=== PATIENT | female | born 1945 ===

== ENCOUNTER → 2020-08-25 11:15 | Outpatient (BNVA) | payer OTHER, SELFPAY | PROVIDERS: PCP Internal Medicine; Visit Provider Internal Medicine Pulmonary Disease | DX: G47.33 Obstructive sleep apnea (adult) (pediatric) (principal); E66.2 Morbid (severe) obesity with alveolar hypoventilation; R06.00 Dyspnea, unspecified; Z99.81 Dependence on supplemental oxygen | CPT/HCPCS: 99202 ==

== ENCOUNTER → 2020-10-28 09:55 | Outpatient (BNVA) | payer OTHER, SELFPAY | PROVIDERS: PCP Internal Medicine; Visit Provider Internal Medicine Pulmonary Disease | DX: G47.33 Obstructive sleep apnea (adult) (pediatric) (principal); E66.2 Morbid (severe) obesity with alveolar hypoventilation; Z99.81 Dependence on supplemental oxygen | CPT/HCPCS: 99212 ==

== ENCOUNTER → 2021-03-14 11:32 | Outpatient (BNVA) | payer OTHER, SELFPAY | PROVIDERS: PCP Internal Medicine; Visit Provider Internal Medicine Pulmonary Disease | DX: G47.33 Obstructive sleep apnea (adult) (pediatric) (principal); E66.2 Morbid (severe) obesity with alveolar hypoventilation; Z99.81 Dependence on supplemental oxygen; Z68.43 Body mass index [BMI] 50.0-59.9, adult | CPT/HCPCS: 99212 ==

== ENCOUNTER → 2021-07-05 11:54 | Outpatient (BNVA) | payer OTHER, SELFPAY | PROVIDERS: PCP Internal Medicine; Visit Provider Internal Medicine Pulmonary Disease | DX: G47.33 Obstructive sleep apnea (adult) (pediatric) (principal); E66.2 Morbid (severe) obesity with alveolar hypoventilation; Z99.81 Dependence on supplemental oxygen | CPT/HCPCS: 99212 ==

== ENCOUNTER → 2021-11-02 11:20 | Outpatient (BNVA) | payer OTHER, SELFPAY | PROVIDERS: PCP Internal Medicine; Visit Provider Internal Medicine Pulmonary Disease | DX: G47.33 Obstructive sleep apnea (adult) (pediatric) (principal); Z99.81 Dependence on supplemental oxygen | CPT/HCPCS: 99212 ==

== ENCOUNTER → 2022-02-09 13:35 | Outpatient (BNVA) | payer OTHER, SELFPAY | PROVIDERS: PCP Internal Medicine; Visit Provider Internal Medicine Pulmonary Disease | DX: G47.33 Obstructive sleep apnea (adult) (pediatric) (principal); E66.2 Morbid (severe) obesity with alveolar hypoventilation; Z99.81 Dependence on supplemental oxygen; Z68.43 Body mass index [BMI] 50.0-59.9, adult | CPT/HCPCS: Q3014 ==

== ENCOUNTER → 2022-03-09 14:27 | Outpatient (BNVA) | payer OTHER, SELFPAY | PROVIDERS: PCP Internal Medicine; Visit Provider Internal Medicine Pulmonary Disease | DX: G47.33 Obstructive sleep apnea (adult) (pediatric) (principal); E66.2 Morbid (severe) obesity with alveolar hypoventilation; Z99.81 Dependence on supplemental oxygen | CPT/HCPCS: 99212 ==

== ENCOUNTER 2022-05-23 15:34 | Outpatient (REF) | payer OTHER, SELFPAY ==
[2022-05-25 07:04] LABS: Lyme Blot 1.27 index
[2022-05-28 14:17] LABS: Vitamin B12 407 pg/mL (200-900)
[2022-05-28 18:59] LABS: Treponema pallidum Ab FTA ABS Nonreactive (Nonreactive)
[2022-05-31 11:18] LABS: Lyme Abs Screen POSITIVE
== END 2022-05-23 15:35 | disposition home or self-care (01) ==
LOC: HO.LAB 15:34
PROVIDERS: PCP Internal Medicine; Visit Provider Psychiatry & Neurology Neurology
DX: G93.40 Encephalopathy, unspecified (principal)
CPT/HCPCS: 36415; 82607; 86617; 86618; 86780

== ENCOUNTER 2022-10-09 12:41 | Outpatient (AMB) | payer OTHER, SELFPAY ==
[2022-10-09 13:01] VITALS: BP 130/82; PULSE 100; O2SAT 90
--- NOTE | 2022-10-09 13:01 | MHC.OFFVIS ---
Intake Vital Signs 10/09/22 13:01 Height 5 ft BP 130/82 Pulse 100 Pulse Oximetry (%) 90 L Intake Visit Reasons: copd Allergies No Known Allergies Allergy (Verified 10/09/22 13:01) HPI copd HPI Details 77-year-old lady, nonsmoker, with underlying super morbid obesity, followed for MAXIME with obesity hypoventilation syndrome, supplemental oxygen 2-3 L dependent.? Patient continues to use supplemental oxygen including at night when she is not fully compliant with her BiPAP.? She continues to have spotty compliance with her noninvasive positive pressure ventilation secondary to significant leak of her BiPAP mask. Patient has been at advised to try over the nose mask, as previously she had the best results with it. [facility] Social History Patient Tobacco Use Status: Never used Tobacco Review of Systems Const Reports daytime sleepiness, Denies excessive sweating, Reports fatigue, Denies fever(s), Denies lethargy, Denies malaise, Denies night sweats, Reports snoring and Denies weight loss Eyes Denies blurry vision and Denies itchy eyes ENT Denies nasal congestion, Denies post nasal drip, Denies sinus pain, Denies sinus pressure and Denies other ( Thrush) Card Denies chest pain, Denies pedal edema, Denies dyspnea, Denies orthopnea and Denies paroxysmal nocturnal dyspnea Resp Denies cough, Denies hemoptysis, Denies excessive phlegm production, Denies dyspnea, Reports snoring and Denies wheezing GI Denies abdominal pain and Denies heartburn Musc Denies myalgias, Denies arthralgias and Denies joint swelling Skin/Breast Denies rash Neuro Denies memory loss and Denies seizure-like activity Psych Denies abnormal sleep pattern, Denies anxiety and Denies memory loss Endo Denies excessive sweating, Reports fatigue and Denies heat intolerance Rene/Lymph Denies easy bruising Aller/Immun Denies itchy eyes, Denies seasonal rhinorrhea and Denies wheezing Physical Exam Vital Signs: Last Vital Signs Pulse 100 10/09/22 13:01 BP 130/82 10/09/22 13:01 Pulse Ox 90 L 10/09/22 13:01 Const General: no acute distress and alert Nutritional Appearance: obese Orientation/consciousness: Other orientation findings ( oriented) HEENT Head: Yes atraumatic Eyes General: appearance normal, both eyes and all related structures Sclerae: sclerae normal EOM: EOMs intact bilaterally Neck Neck: Yes supple Lymphatic: no lymphadenopathy noted Resp Effort & Inspection: normal respiratory effort and no use of accessory muscles Auscultation: clear to auscultation bilaterally Cardio Rate: regular rate Rhythm: regular rhythm Heart sounds: no gallops, no murmurs and no rubs Skin General skin exam: other ( warm) Extrem General: No clubbing, No cyanosis and Yes edema (1+ bilateral) Assessment & Plan Assessment & Plan (1) MAXIME (obstructive sleep apnea): Code(s): G47.33 - Obstructive sleep apnea (adult) (pediatric) Plan: Patient still with suboptimal compliance with her nocturnal BiPAP secondary to significantly cough her current mask. Patient has been advised to try using nasal mask as her compliance with the best with at type of mask. As long as patient is utilizing her BiPAP at night her chronic CO2 retention is controlled. (2) Obesity hypoventilation syndrome: Code(s): E66.2 - Morbid (severe) obesity with alveolar hypoventilation (3) Supplemental oxygen dependent: Code(s): Z99.81 - Dependence on supplemental oxygen Plan: Continues flow mental oxygen to maintain O2 saturation of 88-93%. Coding Level of Care Code Est Pt Level 4 (60192) Diagnoses MAXIME (obstructive sleep apnea) G47.33 Obesity hypoventilation syndrome E66.2 Supplemental oxygen dependent Z99.81
== END 2022-10-09 13:32 | disposition home or self-care (01) ==
PROVIDERS: PCP Internal Medicine; Visit Provider Internal Medicine Pulmonary Disease
DX: G47.33 Obstructive sleep apnea (adult) (pediatric) (principal); Z99.81 Dependence on supplemental oxygen
CPT/HCPCS: 99214

== ENCOUNTER → 2022-10-09 12:41 | Outpatient (BNVA) | payer OTHER, SELFPAY | PROVIDERS: PCP Internal Medicine; Visit Provider Internal Medicine Pulmonary Disease | DX: G47.33 Obstructive sleep apnea (adult) (pediatric) (principal); E66.2 Morbid (severe) obesity with alveolar hypoventilation; Z99.81 Dependence on supplemental oxygen | CPT/HCPCS: 99212 ==

== ENCOUNTER 2022-12-26 11:13 | Outpatient (AMB) | payer OTHER, SELFPAY ==
--- NOTE | 2022-12-26 11:20 | A.OFFVIS_ITS ---
Intake Vital Signs 12/26/22 11:21 Height 5 ft BMI Reason not done Patient refused/unable BP 108/62 Blood Pressure Location Lt radial Position Sitting Pulse 97 Pulse Source Pulse Oximeter Pulse Oximetry (%) 92 Oxygen Delivery Method Nasal Cannula Oxygen Flow Rate 2 Intake Visit Reasons: COPD Intake Note: pt is here for a follow up and states she is feeling okay, no concerns Bioinformatics Scientist Required: No Allergies No Known Allergies Allergy (Verified 12/26/22 11:25) HPI COPD HPI Details 77-year-old lady, nonsmoker, with underl erendira super morbid obesity, followed for MAXIME with obesity hypoventilation syndrome, supplemental oxygen 2-3 L dependent.? Patient continues to use supplemental oxygen including at night when she is not fully compliant with her BiPAP.? She continues to have spotty compliance with her noninvasive positive pressure ventilation secondary to significant leak of her BiPAP mask. Patient at this time would like to go back and try a fullface mask. [facility] Social History Patient Tobacco Use Status: Never used Tobacco Review of Systems Const Denies daytime sleepiness, Denies excessive sweating, Reports fatigue, Denies fever(s), Denies lethargy, Reports malaise, Denies night sweats, Reports snoring and Denies weight loss Eyes Denies blurry vision and Denies itchy eyes ENT Denies nasal congestion, Denies post nasal drip, Denies sinus pain, Denies sinus pressure and Denies other ( Thrush) Card Denies chest pain, Denies pedal edema, Denies dyspnea, Denies orthopnea and Denies paroxysmal nocturnal dyspnea Resp Denies cough, Denies hemoptysis, Denies excessive phlegm production, Denies dyspnea, Reports snoring and Denies wheezing GI Denies abdominal pain and Denies heartburn Musc Denies myalgias, Denies arthralgias and Denies joint swelling Skin/Breast Denies rash Neuro Denies memory loss and Denies seizure-like activity Psych Denies abnormal sleep pattern, Denies anxiety and Denies memory loss Endo Denies excessive sweating, Reports fatigue and Denies heat intolerance Rene/Lymph Denies easy bruising Aller/Immun Denies itchy eyes, Denies seasonal rhinorrhea and Denies wheezing Physical Exam Vital Signs: Last Vital Signs Pulse 97 12/26/22 11:21 BP 108/62 12/26/22 11:21 Pulse Ox 92 12/26/22 11:21 Oxygen Delivery Method Nasal Cannula 12/26/22 11:21 Oxygen Flow Rate 2 12/26/22 11:21 Const General: no acute distress and alert Nutritional Appearance: obese Orientation/consciousness: Other orientation findings ( oriented) HEENT Head: Yes atraumatic Eyes General: appearance normal, both eyes and all related structures Sclerae: sclerae normal EOM: EOMs intact bilaterally Neck Neck: Yes supple Lymphatic: no lymphadenopathy noted Resp Effort & Inspection: normal respiratory effort and no use of accessory muscles Auscultation: clear to auscultation bilaterally Cardio Rate: regular rate Rhythm: regular rhythm Heart sounds: no gallops, no murmurs and no rubs Skin General skin exam: other ( warm) Extrem General: No clubbing, No cyanosis and Yes edema (2+ bilateral) Assessment & Plan Assessment & Plan (1) MAXIME (obstructive sleep apnea): Code(s): G47.33 - Obstructive sleep apnea (adult) (pediatric) Plan: Suboptimally controlled as patient is suboptimally compliant with her BiPAP. Patient has been encouraged to be more compliant with her BiPAP. (2) Obesity hypoventilation syndrome: Code(s): E66.2 - Morbid (severe) obesity with alveolar hypoventilation (3) Dyspnea: Code(s): R06.00 - Dyspnea, unspecified (4) Supplemental oxygen dependent: Code(s): Z99.81 - Dependence on supplemental oxygen Plan: Continue supplemental oxygen to maintain O2 saturation of 88-92%. Coding Level of Care Code Est Pt Level 4 (73605) Diagnoses MAXIME (obstructive sleep apnea) G47.33 Obesity hypoventilation syndrome E66.2 Dyspnea R06.00 Supplemental oxygen dependent Z99.81
[2022-12-26 11:21] VITALS: BP 108/62; PULSE 97; O2SAT 92
== END 2022-12-26 11:47 | disposition home or self-care (01) ==
PROVIDERS: PCP Internal Medicine; Visit Provider Internal Medicine Pulmonary Disease
DX: G47.33 Obstructive sleep apnea (adult) (pediatric) (principal); Z99.81 Dependence on supplemental oxygen; R06.00 Dyspnea, unspecified
CPT/HCPCS: 99214

== ENCOUNTER → 2022-12-26 11:13 | Outpatient (BNVA) | payer OTHER, SELFPAY | PROVIDERS: PCP Internal Medicine; Visit Provider Internal Medicine Pulmonary Disease | DX: G47.33 Obstructive sleep apnea (adult) (pediatric) (principal); R06.00 Dyspnea, unspecified; E66.2 Morbid (severe) obesity with alveolar hypoventilation; Z99.81 Dependence on supplemental oxygen | CPT/HCPCS: 99212 ==

== ENCOUNTER 2023-11-29 13:10 | Outpatient (AMB) | payer OTHER, SELFPAY ==
--- NOTE | 2023-11-29 13:13 | A.OFFVIS_ITS ---
Vital Signs 11/29/23 13:16 Pulse 93 Pulse Source Pulse Oximeter Pulse Oximetry (%) 95 Oxygen Delivery Method Nasal Cannula Oxygen Flow Rate 2 Comment pt unable to stand to obtain to weight Intake Visit Reasons: COPD Allergies No Known Allergies Allergy (Verified 11/29/23 13:21) Medication List - Last Reconciled 11/29/23 by Vanessa Dodson LPN albuterol sulfate 90 mcg/actuation 2 puffs inhalation Q4H PRN blood sugar diagnostic As directed cholecalciferol (vitamin D3) 25 mcg PO DAILY dorzolamide-timolol 22.3-6.8 mg/mL mL ophthalmic (eye) dulaglutide 1.5 mg subcut QWEEK gabapentin 100 mg PO DAILY insulin glargine units subcut insulin regular human (Novolin R FlexPen) 20 units subcut TID ipratropium-albuterol 0.5 mg-3 mg(2.5 mg base)/3 mL 3 mL inhalation Q4-6H PRN 30 days ketoconazole 2% appl topical BEDTIME lancets As directed metformin ER 1,000 mg PO BID metoprolol succinate ER 50 mg PO DAILY mirabegron ER (Myrbetriq) 50 mg PO DAILY nystatin topical pen needle, diabetic As directed sennosides 17.2 mg PO DAILY sertraline 100 mg PO DAILY simvastatin 20 mg PO BEDTIME sulfamethoxazole-trimethoprim 800-160 mg 1 tab PO BID warfarin 0 mg PO HPI HPI COPD: Details: 78-year-old lady, nonsmoker, with underlying super morbid obesity, followed for MAXIME with obesity hypoventilation syndrome, supplemental oxygen 2-3 L dependent.? Patient continues to use supplemental oxygen including at night when she is not fully compliant with her BiPAP.? She continues to have spotty compliance with her noninvasive positive pressure ventilation secondary to significant leak of her BiPAP mask. No significant changes since prior visit. [facility] Social History Patient Tobacco Use Status: Never used Tobacco Review of Systems Const Reports daytime sleepiness, Denies excessive sweating, Reports fatigue, Denies fever(s), Reports lethargy, Denies malaise, Denies night sweats, Reports snoring and Denies weight loss Eyes Denies blurry vision and Denies itchy eyes ENT Denies nasal congestion, Denies post nasal drip, Denies sinus pain, Denies sinus pressure and Denies other ( Thrush) Card Denies chest pain, Reports pedal edema, Denies dyspnea, Reports dyspnea on exertion, Reports orthopnea and Denies paroxysmal nocturnal dyspnea Resp Denies cough, Denies hemoptysis, Denies excessive phlegm production, Denies dyspnea, Reports dyspnea on exertion, Reports snoring and Denies wheezing GI Denies abdominal pain and Denies heartburn Musc Denies myalgias, Denies arthralgias and Denies joint swelling Skin/Breast Denies rash Neuro Denies memory loss and Denies seizure-like activity Psych Denies abnormal sleep pattern, Denies anxiety and Denies memory loss Endo Denies excessive sweating, Reports fatigue and Denies heat intolerance Rene/Lymph Denies easy bruising Aller/Immun Denies itchy eyes, Denies seasonal rhinorrhea and Denies wheezing Physical Exam Vital Signs: Last Vital Signs Pulse 93 11/29/23 13:16 Pulse Ox 95 11/29/23 13:16 Oxygen Delivery Method Nasal Cannula 11/29/23 13:16 Oxygen Flow Rate 2 11/29/23 13:16 Const General: no acute distress and alert Nutritional Appearance: obese Orientation/consciousness: Other orientation findings ( oriented) HEENT Head: Yes atraumatic Eyes General: appearance normal, both eyes and all related structures Sclerae: sclerae normal EOM: EOMs intact bilaterally Neck Neck: Yes supple Lymphatic: no lymphadenopathy noted Resp Effort & Inspection: normal respiratory effort and no use of accessory muscles Auscultation: clear to auscultation bilaterally Cardio Rate: regular rate Rhythm: regular rhythm Heart sounds: no gallops, no murmurs and no rubs Skin General skin exam: other ( warm) Extrem General: No clubbing, No cyanosis and Yes edema (2+ bilateral) Assessment & Plan Assessment & Plan (1) MAXIME (obstructive sleep apnea): Code(s): G47.33 - Obstructive sleep apnea (adult) (pediatric) Category: Medical (2) Obesity hypoventilation syndrome: Code(s): E66.2 - Morbid (severe) obesity with alveolar hypoventilation Category: Medical (3) Supplemental oxygen dependent: Code(s): Z99.81 - Dependence on supplemental oxygen Category: Medical Plan Suboptimal control of underlying obesity hyperventilation and sleep apnea as patient is not fully compliant with underlying BiPAP therapy. She does continue to use supplemental oxygen both during the daytime and at night that does provide at least some symptomatic control of her respiratory issues. Continue current therapy. Patient has been encouraged to be more compliant with positive pressure ventilation therapy. Coding Level of Care Code Est Pt Level 4 (91970) Diagnoses MAXIME (obstructive sleep apnea) G47.33 Obesity hypoventilation syndrome E66.2 Supplemental oxygen dependent Z99.81
[2023-11-29 13:16] VITALS: PULSE 93; O2SAT 95
== END 2023-11-29 13:41 | disposition home or self-care (01) ==
PROVIDERS: PCP Internal Medicine; Visit Provider Internal Medicine Pulmonary Disease
DX: G47.33 Obstructive sleep apnea (adult) (pediatric) (principal); E66.2 Morbid (severe) obesity with alveolar hypoventilation; Z99.81 Dependence on supplemental oxygen
CPT/HCPCS: 99214

== ENCOUNTER → 2023-11-29 13:10 | Outpatient (BNVA) | payer OTHER, SELFPAY | PROVIDERS: PCP Internal Medicine; Visit Provider Internal Medicine Pulmonary Disease | DX: E66.2 Morbid (severe) obesity with alveolar hypoventilation (principal); G47.33 Obstructive sleep apnea (adult) (pediatric); Z99.81 Dependence on supplemental oxygen | CPT/HCPCS: 99212 ==

== ENCOUNTER 2024-05-27 10:50 | Outpatient (AMB) | payer OTHER, SELFPAY ==
[2024-05-27 10:54] VITALS: BP 108/62; PULSE 93; O2SAT 90
--- NOTE | 2024-05-27 10:54 | MHC.OFFVIS ---
Vital Signs 05/27/24 10:54 Height 5 ft BP 108/62 Blood Pressure Location Rt brachial Position Sitting Pulse 93 Pulse Source Doppler Pulse Oximetry (%) 90 L Oxygen Delivery Method Nasal Cannula Oxygen Flow Rate 2 Comment unable to do weight- wheelchair bound Intake Visit Reasons: COPD Allergies No Known Allergies Allergy (Verified 11/29/23 13:21) HPI HPI COPD: Details: 78-year-old lady, nonsmoker, with underlying super morbid obesity, followed for MAXIME with obesity hypoventilation syndrome, supplemental oxygen 2-3 L dependent.? Patient continues to use supplemental oxygen including at night when she is not fully compliant with her BiPAP.? She continues to have spotty compliance with her noninvasive positive pressure ventilation. Today she does complain of worsening productive cough. [facility] Social History Patient Tobacco Use Status: Never used Tobacco Review of Systems Const Reports daytime sleepiness, Denies excessive sweating, Reports fatigue, Denies fever(s), Reports lethargy, Denies malaise, Denies night sweats, Denies snoring and Denies weight loss Eyes Denies blurry vision and Denies itchy eyes ENT Denies nasal congestion, Denies post nasal drip, Denies sinus pain, Denies sinus pressure and Denies other ( Thrush) Card Denies chest pain, Denies pedal edema, Denies dyspnea, Denies orthopnea and Denies paroxysmal nocturnal dyspnea Resp Reports cough, Denies hemoptysis, Reports excessive phlegm production, Denies dyspnea, Denies snoring and Denies wheezing GI Denies abdominal pain and Denies heartburn Musc Denies myalgias, Denies arthralgias and Denies joint swelling Skin/Breast Denies rash Neuro Denies memory loss and Denies seizure-like activity Psych Denies abnormal sleep pattern, Denies anxiety and Denies memory loss Endo Denies excessive sweating, Reports fatigue and Denies heat intolerance Rene/Lymph Denies easy bruising Aller/Immun Denies itchy eyes, Denies seasonal rhinorrhea and Denies wheezing Physical Exam Vital Signs: Last Vital Signs Pulse 93 05/27/24 10:54 BP 108/62 05/27/24 10:54 Pulse Ox 90 L 05/27/24 10:54 Oxygen Delivery Method Nasal Cannula 05/27/24 10:54 Oxygen Flow Rate 2 05/27/24 10:54 Const General: no acute distress and alert Nutritional Appearance: obese Orientation/consciousness: Other orientation findings ( oriented) HEENT Head: Yes atraumatic Eyes General: appearance normal, both eyes and all related structures Sclerae: sclerae normal EOM: EOMs intact bilaterally Neck Neck: Yes supple Lymphatic: no lymphadenopathy noted Resp Effort & Inspection: normal respiratory effort and no use of accessory muscles Auscultation: clear to auscultation bilaterally Cardio Rate: regular rate Rhythm: regular rhythm Heart sounds: no gallops, no murmurs and no rubs Skin General skin exam: other ( warm) Extrem General: No clubbing, No cyanosis and Yes edema (Trace bilateral) Assessment & Plan Assessment & Plan (1) Obesity hypoventilation syndrome: Code(s): E66.2 - Morbid (severe) obesity with alveolar hypoventilation Category: Medical (2) Supplemental oxygen dependent: Code(s): Z99.81 - Dependence on supplemental oxygen Category: Medical (3) MAXIME (obstructive sleep apnea): Code(s): G47.33 - Obstructive sleep apnea (adult) (pediatric) Category: Medical Plan Continues with poor compliance with underlying BiPAP therapy and thus poor control of underlying obesity hypoventilation syndrome and obstructive sleep apnea. She does continue to use supplemental oxygen both during the daytime and at night that does provide at least some symptomatic control of her respiratory issues. Continue current therapy. Patient has been encouraged to be more compliant with positive pressure ventilation therapy. Will treat bronchitic exacerbation with a course of Augmentin. Medications: New amoxicillin-pot clavulanate 875-125 mg 1 tab PO BID 20 tabs 0RF Coding Level of Care Code Est Pt Level 4 (59112) Diagnoses Obesity hypoventilation syndrome E66.2 Supplemental oxygen dependent Z99.81 MAXIME (obstructive sleep apnea) G47.33
--- OUTSIDE RECORDS SUMMARY | 2024-05-27 13:31 | XMS_ITS | Encounter Summary ---
Author Organization [employer] Address [address] [place] [address] Care Team Providers Care License And Permit Specialist Name Role Phone Olga Barron MD Primary Care Provider + Encounter Details Date Type Department Care Team (Late st Contact Info) Description 05/12/2024 Telephone Endocrinology - [place] [address] [place] [address] Eleonora Fortune PA [address] [place] [address] Social History Tobacco Use Types Packs/Day Years Used Date Smoking Tobacco: Never Smokeless Tobacco: Never Alcohol Use Standard Drinks/Week Comments No 0 (1 standard drink = 0.6 oz pur e alcohol) Comments No Sex and Gender Information Value Date Recorded Sex Assigned at Not on file Legal Sex Female 4:37 AM EST Gender Identity Not on file Sexual Orientation Not on file documented as of this encounter Progress Notes * Bee Romero MA - 05/12/2024 1:58 PM EST Spoke to PT's daughter, advised at last 2 OV this medication shows as active and also active on MedList. Also stated to daughter that Hospital DC summary from 05/05/23 and this is also noted in DC medications as also active. Concetta then stated well someone stopped it . The PT has not been taking it currently and wants to know if PT should be restarting this medication? * Bee Romero MA - 05/12/2024 1:56 PM EST 05/05/23 Discharge Medications: Acetaminophen (Tylenol Extra Strength) 1,000 Milligram By Mouth Every 6 hours as needed Pain , Mildnot to exceed 4000 mg acetaminophen per day Albuterol (albuterol CFC free 90 mcg/inh inhalation aerosol) 2 puff(s) Inhalation 4 times a day apixaban (apixaban Starter Pack 5 mg oral tablet) 1 tab(s) 5 Milligram By Mouth 2 times a day for 30 Days Brimonidine Ophthalmic (brimonidine 0.2% ophthalmic solution) 1 Drops Eyes, Both 2 times a day Cholecalciferol (D 1000 IU oral tablet) 1 tab(s) 1,000 International Unit By Mouth Daily Cyanocobalamin (Vitamin B-12 1000 mcg oral tablet) 56 each, 0 Refill(s) dapagliflozin (Farxiga 10 mg oral tablet) 1 tab(s) 10 Milligram By Mouth Daily * Alexandrea Lau - 05/12/2024 10:52 AM EST Concetta, patients daughter is calling stating about a year ago Ela stopped the medication dapagliflozin 10 mg tablet. This was about 1 year ago 05/25/23. Patient was in [facility] and the doctors had her stop this medication. Charity is asking if Ela should start taking this again. Thisis still coming in her medication packet from [facility]. Please call Concetta at: [phone] documented in this encounter Plan of Treatment Not on file documented as of this encounter Visit Diagnoses Not on filedocumented in this encounter Care Teams License And Permit Specialist Relationship Specialty Start Date End Date Olga Barron MD [facility] [address] [place] [address] PCP - General Internal Medicine 04/14/24 documented as of this encounter
--- OUTSIDE RECORDS SUMMARY | 2024-05-27 13:31 | XMS_ITS | Clinical Summary ---
Author Organization [facility] [address] [facility] Address [address] [place] [address] Phone Care Team Providers Care Substation Operator Chief Name Role Phone Olga Barron MD Primary Care Provider + Allergies No known active allergies Medications FREESTYLE LANCETS MISC USE TO TEST BLOOD SUGAR THREE TIMES DAILY 4 Active cyanocobalamin (VITAMIN B-12) 1,000 mcg tablet Take 2 tablets (2,000 mcg total) by mouth 1 (one) time each day. 4 Active gabapentin (NEURONTIN) 300 mg capsule TAKE (1) CAPSULE BY MOUTH AT BEDTIME. 4 Active mirabegron (Myrbetriq) 50 mg tablet extended release 24 hr 24 hr tablet Take 1 tablet (50 mg total) by mouth 1 (one) time each day. 4 Active sertraline (ZOLOFT) 100 mg tablet Take 1 tablet (100 mg total) by mouth 1 (one) time each day. 4 Active simvastatin (ZOCOR) 20 mg tablet TAKE 1 TABLET BY MOUTH AT BEDTIME. 4 Active cholecalciferol (VITAMIN D-3) 25 mcg (1,000 unit) tablet Take 1 tablet (1,000 Units total) by mouth 1 (one) time each day. 4 Active medroxyPROGESTERon e (PROVERA) 10 mg tablet Take 1 tablet (10 mg total) by mouth 1 (one) time each day. 3 Active diclofenac (VOLTAREN) 1 % topical gel Apply 4 g topically 4 times daily. 3 Active silver sulfADIAZINE (SILVADENE, SSD) 1 % cream Apply to affected area sparingly daily-bid. 3 Active nystatin (Nyamyc) 100,000 unit/gram powder APPLY TOPICALLY TO ABDOMEN 3 TIMES DAILY. 3 Active syr,ndl,ins,safe 0.5mL,disp un (INSULIN SYRINGE-NEEDLE,DIS POS. [facility]) 1 Device by Does not apply route every 30 days. ADMIN B12 Injection Q month 3 Active blood-glucose meter (BLOOD GLUCOSE MONITORING [facility]) Test tid 2 Active torsemide (DEMADEX) 20 mg tablet Take 20 mg by mouth 2 times daily. [facility] Active senna (SENOKOT) 8.6 mg tablet TAKE 2 TABLETS BY MOUTH DAILY EVERY EVENING. 1 Active metoprolol succinate (TOPROL-XL) 50 mg 24 hr tablet Take 1 tablet (50 mg total) by mouth 1 (one) time each day. 1 Active acetaminophen (TYLENOL) 500 mg tablet Take 1,000 mg by mouth every 6 hours as needed. Active brimonidine (ALPHAGAN) 0.2 % ophthalmic solution 0 Active dorzolamide-timolo L (COSOPT) 22.3-6.8 mg/mL ophthalmic solution 0 Active albuterol sulfate (ProAir RespiClick) 90 mcg/actuation aerosol powdr breath activated Inhale 2 Puffs into the lungs 4 times daily as needed. Active medical supply, miscellaneous (MISCELLANEOUS MEDICAL SUPPLY [facility]) CPAP HISTORICAL (HISTORICAL CPAP) Inhale into the lungs. Regional bipap pressure 14/11 Active syringe-needle,ins ulin,0.5 mL (INSULIN SYRINGE [facility]) USE DIRECTED WITH INSULIN PENS 4 TIMES DAILY. 3 Active Eliquis 5 mg tablet Take 1 tablet (5 mg total) by mouth 2 (two) times a day. 4 Active dulaglutide (Trulicity) 3 mg/0.5 mL pen injector injectionIndicatio ns:Diabetes mellitus type 2 with neurological manifestations (CMS/HCC) Inject 3 mg into the skin every 7 days. 2 mL 5 4 Active metFORMIN XR (GLUCOPHAGE-XR) 500 mg 24 hr tabletIndications: Diabetes mellitus type 2 with neurological manifestations (CMS/HCC) Do not crush, chew, or split.TAKE (2) TABLETS BY MOUTH TWICE DAILY. 360 tablet 3 4 Active dapagliflozin propanediol (Farxiga) 10 mg tabletIndications: Diabetes mellitus type 2 with neurological manifestations (CMS/HCC) Take 1 tablet (10 mg total) by mouth 1 (one) time each day. 90 tablet 3 4 Active insulin glargine (Lantus Solostar U-100 Insulin) 100 unit/mL (3 mL) injection penIndications:Sharda betes mellitus type 2 with neurological manifestations (CMS/HCC) Inject 16 Units under the skin at bedtime. 15 mL 5 4 Active insulin aspart (NovoLOG Flexpen U-100 Insulin) 100 unit/mL (3 mL) injection penIndications:Sharda betes mellitus type 2 with neurological manifestations (CMS/HCC) INJECT 3 TIMES DAILY WITH MEALS PER SLIDING SCALE. BG 70-130: 3 UNITS; 131-180:5UNITS ; 181-240: 7UNITS; 241-300:9UNITS ; 301-350: 11UNITS; 351-400:13UNIT S, +4 EXTRA UNITS AT DINNER 15 mL 5 4 Active pen needle, diabetic (Pen Needle) 31 gauge x 5/16 needle 1 each by Other route 4 (four) times a day. USE DIRECTED WITH INSULIN PENS 4 TIMES DAILY. 400 each 3 4 Active blood sugar diagnostic (FreeStyle Lite Strips) test stripIndications:T ype 2 diabetes mellitus with diabetic neuropathy, with long-term current use of insulin (CMS/HCC) USE TO TEST BLOOD SUGAR 3 TIMES A DAY 100 strip 2 5 Active flash glucose sensor (FreeStyle Robby 2 Sensor) kit Apply 1 Each topically every 14 days. 2 each 11 5 Active Active Problems Problem Noted Date Diagnosed Date Vaginal discomfort 03/18/2024 Assessment & Plan (03/18/2024 8:26 AM EST): I counseled Ela and her granddaughter that there is no evidence of prolapse or other concerning finding on exam today. Admittedly it is limited by her habitus and inability to transfer. I recommended that if she feels the sensation of things coming out, one of her caretakers look to see if indeed this is happening and let us know. Morbid obesity with BMI of 60.0-69.9, adult 12/30 Endometrial hyperplasia 06/12/2021 Overview (01/14/2024): Last Assessment & Plan: I reviewed with Concetta and her daughter that with Ela's postmenopausal bleeding and ultrasound demonstrating EMS 1.3cm there is concern for endometrial hyperplasia or carcinoma. The biopsy done in early May demonstrated endometrial hyperplasia. I discussed that my concern, however, is that I obtained very scant amount of tissue at the time of the biopsy and I do not feel that I adequately evaluated the uterine cavity. My recommendation is for D&C, to which Concetta did initially agree, however the patient was evaluated by her PCP for preoperative clearance was was not medically cleared. I discussed my recommendation for referral to senior civil engineer/onc. As this patient is very high risk and has a complex medical history I recommend the patient be referred to [facility]. Concetta and her daughter accepted the referral today. I also discussed that endometrial hyperplasia should be treated with a progesterone to prevent the development of carcinoma (assuming there is no underlying carcinoma at this time). I reviewed the r/b/a and sent an Rx for Provera to the patient's pharmacy. She will take this medication until she is further evaluated and a treatment plan is agreed upon by [facility] senior civil engineer/onc. All questions answered. Postmenopausal bleeding 05/04/2021 Overview (01/14/2024): Last Assessment & Plan: I discussed the common causes of postmenopausal bleeding as well as less common but more concerning causes including endometrial hyperplasia and endometrial carcinoma. I discussed that the ultrasound is concerning for endometrial hyperplasia or malignancy as the lining is thickened, measuring 1.3cm. Endometrial biopsy performed today. We discussed postprocedure cramping and light bleeding.Advised to call with increasing pain, heavy bleeding, or fever. I will call the patient's daughter with the results when they are available. All questions answered. Arthritis of knee 04/06/2021 Depressive disorder 04/06/2021 Hypertension 04/06/2021 Sensorineural hearing loss (SNHL) 04/06/2021 Overview (01/14/2024): Referral to ENT on 11/06. Hypoxia 04/06/2021 Overview (01/14/2024): Likely due to morbid obesity and sedentary lifestyle. No tobacco, COPD/asthma or previous pulmonary sxs. Reactive airway disease 04/06/2021 Overview (01/14/2024): PFT: 10/12: There is a significant response to bronchodilator suggestive underlying airway hyperresponsiveness/asthma. Hyperinflation and air trapping are present. The carbon monoxide diffusing capacity is normal. Since 18-Sep-13, lower FEV1 (- 14%), unchanged FVC (-8%) Dementia 04/06/2021 Overview (01/14/2024): MOCA 01/28 Morbid obesity 04/06/2021 Severe obesity 04/06/2021 Obstructive sleep apnea syndrome 04/06/2021 Sepsis due to urinary tract infection 04/06/2021 Spinal stenosis 04/06/2021 Overview (01/14/2024): [facility]. Urinary incontinence 01/14/2018 Mild cognitive impairment 11/20/2017 Chronic low back pain 11/01/2017 COPD (chronic obstructive pulmonary disease) 05/2017 Overview (01/14/2024): [place] [facility] [place] Depression 11/01/2017 DM (diabetes mellitus), type 2 with renal compli cations 11/01/2017 GERD (gastroesophageal reflux disease) 8 Glaucoma 11/01/2017 Hearing loss 11/01/2017 Overview (01/14/2024): Left ear Microalbuminuria 11/01/2017 OAB (overactive bladder) 11/01/2017 Osteoporosis 11/01/2017 Peripheral neuropathy 11/01/2017 Diabetes mellitus type 2 with neurological manif estations 10/07/2017 Essential hypertension 10/07/2017 Hyperlipidemia 10/07/2017 MAXIME (obstructive sleep apnea) 10/07/2017 Overview (01/14/2024): Uses BIPAP and 2 l oxygen Age related osteoporosis 06/04/2012 Overview (01/14/2024): ON biphosphonate therapy from 2009 to 2016. On Holiday period now... Malignant neoplasm of breast 08/15/2010 Chronic pain syndrome 02/10/2008 Type 2 diabetes mellitus 08/27/2007 Encounters Date Type Department Care Team Description 05/12/2024 Telephone Endocrinology - [address] [phone] Eleonora Fortune PA 04/14/2024 Telephone Endocrinology - [address] [phone] Eleonora Fortune PA call from md office 03/13/2024 1:15 PM EST Office Visit Obstetrics and Gynecology - [address] [phone] Corin Thompson MD Vaginal discomfort (Primary Dx) 03/10/2024 Telephone Endocrinology - [address] [phone] Eleonora Fortune PA 03/03/2024 Telephone Endocrinology - [address] [phone] Eleonora Fortune PA Medication Problem 03/03/2024 Telephone Endocrinology - [address] [phone] Eleonora Fortune PA Medication Problem 02/26/2024 2:30 PM EST Office Visit Endocrinology - [address] [phone] Eleonora Fortune PA Diabetes mellitus type 2 with neurological manifestations (CMS/HCC) (Primary Dx); Essential hypertension; Hyperlipidemia, unspecified hyperlipidemia type from Last 3 Months Immunizations Name Administration Dates Next Due Influenza Quadravalent, MDCK , 0.5ml, preservative free (Flucelvax) 6mo and older 05/28/2018 Influenza trivalent, 0.5mL ( Fluad) 65yo and older 02/28/2021,03/07/2020,02/27/2019 Pneumococcal conjugate 13 va lent (Prevnar 13, PCV13) 2mo and older 05/28/2018 Pneumococcal polysaccharide 23 valent (Pneumovax 23) 2yo and older 03/07/2020 Tdap Tetanus diptheria acell ular pertussis (Boostrix; Adacel) 7yo and older 04/24/2017 Surgical History Surgery Date Site/Laterality Comments TUBAL LIGATION PROCEDURE: HISTORICAL TUBAL LIGATION HYSTEROSCOPY PROCEDURE: FL HYSTEROSCOPY BX ENDOMETRIUM&/POLYPC W/WO D&C; COMMENT: and D & C COLONOSCOPY PROCEDURE: HISTORICAL COLONOSCOPY; COMMENT: date & results unknown Medical History Medical History Date Comments Glaucoma 11/01/2017 DX:Glaucoma MAXIME (obstructive sleep apnea) 10/07/2017 DX :MAXIME (obstructive sleep apnea); COMMENT: Uses BIPAP and 2 l oxygen Advanced dementia ([facility]) 11/01/2017 DX:A dvanced dementia ([facility]) Hearing loss 11/01/2017 DX:Hearing loss; COMMENT: Left ear Microalbuminuria 11/01/2017 DX:Microalbumin uria COPD (chronic obstructive pu lmonary disease) ([facility]) 11/01/2017 DX:COPD (chronic obstructive pulmonary disease) ([facility]) Morbid obesity with BMI of 4 5.0-49.9, adult ([facility]) 11/01/2017 DX:Morbid obesity with BMI o f 45.0-49.9, adult ([facility]) History of pulmonary embolism 10/08/2017 DX :History of pulmonary embolism History of breast cancer 11/01/2017 DX:Hist ory of breast cancer Osteoporosis 11/01/2017 DX:Osteoporosis Diabetes mellitus type 2 wit h neurological manifestations ([facility]) 10/07/2017 DX:Diabetes elizabeth itus type 2 with neurological manifestations ([facility]) Peripheral neuropathy 11/01/2017 DX:Periphe ral neuropathy Depression 11/01/2017 DX:Depression GERD (gastroesophageal reflux disease) 11/01/2017 DX:GERD (gastroesophageal reflux disease) OAB (overactive bladder) 11/01/2017 DX:OAB (overactive bladder) DM (diabetes mellitus), type 2 with renal complications ([facility]) 11/01/2017 DX:DM (diabetes mellitus ), type 2 with renal complications (HCC) Chronic low back pain 11/01/2017 DX:Chronic low back pain; COMMENT: [facility]. Narcotic contract Spinal stenosis 11/01/2017 DX:Spinal stenos is Personal history of DVT (kay p vein thrombosis) 10/08/2017 DX:Personal history of DVT ( deep vein thrombosis) Hyperlipidemia 10/07/2017 DX:Hyperlipidemi a Essential hypertension 10/07/2017 DX:Essent ial hypertension Mild cognitive impairment 11/20/2017 DX:Mil d cognitive impairment Bed confinement status 11/20/2017 DX:Bed co nfinement status Anticoagulated on warfarin 11/20/2017 DX:An ticoagulated on warfarin Urinary incontinence 01/14/2018 DX:Urinary incontinence Family History Medical History Relation Name Comments Prostate cancer Father age 101 Arthritis Mother Relation Name Status Comments Father Mother Social History Tobacco Use Types Packs/Day Years Used Date Smoking Tobacco: Never Smokeless Tobacco: Never Tobacco Cessation:Counseling Given: Not Answered Alcohol Use Standard Drinks/Week Comments No 0 (1 standard drink = 0.6 oz pur e alcohol) Comments No Sex and Gender Information Value Date Recorded Sex Assigned at Not on file Legal Sex Female 4:37 AM EST Gender Identity Not on file Sexual Orientation Not on file Obstetrics History Para Term AB IAB SAB Ectopic Multiple Livin g Live Births 4 4 Date Outcome GA Total Labor Labor/2nd/3rd Weight Sex Type Anes PTL Vijaya A1 A5 Name Clin Last Filed Vital Signs Vital Sign Reading Time Taken Comments Blood Pressure 124/78 03/13/2024 1:15 PM EST Pulse 74 03/13/2024 1:15 PM EST Temperature 36.3 ??C (97.3 ??F) 02/26/2024 3:04 PM ES T Respiratory Rate 16 03/13/2024 1:15 PM EST Oxygen Saturation 96% 02/26/2024 3:04 PM EST Inhaled Oxygen Concentration - - Weight 122 kg (270 lb) 03/13/2024 1:15 PM EST Height 152.4 cm (5') 03/13/2024 1:15 PM EST Body Mass Index 52.73 03/13/2024 1:15 PM EST Plan of Treatment Health Maintenance Due Date Last Done Comments Diabetes: Annual Foot Exam 08[birth year]19/1955 Diabetes: Annual Retina Eye Exam 08/19/1955 RSV Immunization Patients 60+ Years Old (1 - 1-dose 75+ series) 2020 Depression Screening 03/10/2022 Falls Risk Assessment 03/10/2022 Hepatitis C Screening 03/10/2022 Medicare Annual Wellness Visit 03/10/2022 Osteoporosis Screening (Bone Density Screening) 03/10/2022 Social Influencers of Health Screening 03/10/2022 Diabetes: Annual Urine Albumin-Creatinine Ratio (uACR) 03/14/2022 06/11/2019 COVID-19 Vaccine ( season) 2023 02/14/2021, 06/24/2020, 05/27/2020 Influenza Vaccine (#1) 2023 , 01/24/2022, 02/28/2021, Additional history exists Zoster Vaccines (2 of 2) 12/03/2023 10/08/2023 Diabetes: Blood Sugar Control Test (HGBA1C) 08/25/2024 02/26/2024, 05/31/2023 Diabetes: Annual GFR (Glomerular Filtration Rate) 02/25/2025 02/26/2024, 05/31/2023 Hypertension/CHF/CAD Annual BMP Blood Test 02/25/2025 02/26/2024, 05/31/2023 DTaP,Tdap,and Td Vaccines (3 - Td or Tdap) 04/24/2027 04/24/2017, 04/23/2007 Cholesterol Screening (Lipid Panel) 02/25/2029 02/26/2024, 05/31/2023 Pneumococcal Vaccine: 50+ Years Completed 03/07/2020, 05/28/2018, 10/11/2015, Additional history exists HIB Vaccines Aged Out No longer eligi ble based on patient's age to complete this topic HPV Vaccines Aged Out No longer eligi ble based on patient's age to complete this topic Hepatitis A Vaccines Aged Out No long er eligible based on patient's age to complete this topic Hepatitis B Vaccines Aged Out No long er eligible based on patient's age to complete this topic IPV Vaccines Aged Out No longer eligi ble based on patient's age to complete this topic MMR Vaccines Aged Out No longer eligi ble based on patient's age to complete this topic Meningococcal ACWY Vaccine Aged Out N o longer eligible based on patient's age to complete this topic Meningococcal B Vacine Aged Out No lo nger eligible based on patient's age to complete this topic RSV Immunization Patients Under 20 months Aged Out No longer eligible based on patient's age to complete this topic Varicella Vaccines Aged Out No longer eligible based on patient's age to complete this topic Procedures Procedure Name Priority Date/Time Associated Diagnosis Comments BASIC METABOLIC PANEL Routine 02/26/2024 3:43 PM EST Diabetes mellitus type 2 with neurological manifestations (CMS/HCC) HEMOGLOBIN A1C Routine 02/26/2024 3:43 PM EST Diabetes mellitus type 2 with neurological manifestations (CMS/HCC) LIPID PANEL WITH REFLEX TO DIRECT LDL Routine 02/26/2024 3:43 PM EST Diabetes mellitus type 2 with neurological manifestations (CMS/HCC) HM URINE ALBUMIN CREATININE RATIO Routine 06/11/2019 from Last 3 Months or Most Recently Relevant to Health Maintenance Results * (ABNORMAL) Lipid panel with reflex to direct LDL (02/26/2024 3:43 PM EST) Cholesterol 132 0 - 200 mg/dL LAB CHEMISTRY METHOD 02/26/2024 7:07 PM [facility] Triglycerides 348(H) 0 - 150 mg/dL LAB CHEMISTRY METHOD 02/26/2024 7:07 PM [facility] HDL 31(L) >=40 mg/dL LAB CHEMISTRY METHOD 02/26/2024 7:07 PM [facility] LDL Calculated 31 0 - 100 mg/dL LAB CHEMISTRY METHOD 02/26/2024 7:07 PM [facility] VLDL Cholesterol Louis 69.6 mg/dL LAB CHEMISTRY METHOD 02/26/2024 7:07 PM [facility] Non HDL Chol. (LDL+VLDL) 101 <145 mg/dL LAB CHEMISTRY METHOD 02/26/2024 7:07 PM [facility] Chol/HDL Ratio 4.3 0.0 - 4.4 LAB CHEMISTRY METHOD 02/26/2024 7:07 PM EST [facility] Blood Venous blood specimen / Unknown Venipuncture / Unknown 02/26/2024 3:43 PM EST 02/26/2024 3:43 PM EST Eleonora GAMEZ LAB BLOOD ORDERABLES Final Result Performing Organization Address [facility]/ZIP Co de Phone Number [facility] [address] [place] [address], [place] [phone] * Hemoglobin A1c (02/26/2024 3:43 PM EST) [facility] Hemoglobin A1C 6.2 <6.5 % LAB CHEMISTRY METHOD 02/26/2024 9:27 PM EST [facility] Mean Bld Glu Estim. 131 mg/dL LAB CHEMISTRY METHOD 02/26/2024 9:27 PM [facility] Blood Venous blood specimen / Unknown Venipuncture / Unknown 02/26/2024 3:43 PM EST 02/26/2024 3:43 PM EST Eleonora GAMEZ LAB BLOOD ORDERABLES Final Result Performing Organization Address [facility]/ZIP Co de Phone Number [facility] [address] [place] [address], [place] [phone] * (ABNORMAL) Basic metabolic panel (02/26/2024 3:43 PM EST) [facility] Sodium 139 133 - 145 mmol/L LAB CHEMISTRY METHOD 02/26/2024 7:07 PM EST [facility] Potassium 4.6 3.5 - 5.5 mmol/L LAB CHEMISTRY METHOD 02/26/2024 7:07 PM [facility] Chloride 95(L) 96 - 110 mmol/L LAB CHEMISTRY METHOD 02/26/2024 7:07 PM [facility] CO2 40(H) 21 - 32 mmol/L LAB CHEMISTRY METHOD 02/26/2024 7:07 PM [facility] Anion Gap 4 3 - 11 LAB CHEMISTRY METHOD 02/26/2024 7:07 PM [facility] Glucose 205(H) 70 - 100 mg/dL LAB CHEMISTRY METHOD 02/26/2024 7:07 PM [facility] BUN 21 5 - 25 mg/dL LAB CHEMISTRY METHOD 02/26/2024 7:07 PM [facility] Creatinine 0.78 0.50 - 1.10 mg/dL LAB CHEMISTRY METHOD 02/26/2024 7:07 PM [facility] eGFR 78 >=60 mL/min/1. 73m2 LAB CHEMISTRY METHOD 02/26/2024 7:07 PM [facility] Comment:Calculation based on the??Chronic Kidney Disease Epidemiology Collaboration (CKD-EPI) equation refit??without adjustment for race. BUN/Creatinine Ratio 26.9 LAB CHEMISTRY METHOD 02/26/2024 7:07 PM [facility] Calcium 9.5 8.5 - 10.5 mg/dL LAB CHEMISTRY METHOD 02/26/2024 7:07 PM [facility] Blood Venous blood specimen / Unknown Venipuncture / Unknown 02/26/2024 3:43 PM EST 02/26/2024 3:43 PM EST us Eleonora GAMEZ LAB BLOOD ORDERABLES Final Result [facility] [address] [place] [address], * Urine Albumin Creatinine Ratio (06/11/2019) Urine Albumin Creatinine Ratio abstracted Historical Provider MD HEALTH MAINTENANCE Final Result from Last 3 Months or Most Recently Relevant to Health Maintenance Insurance [facility] MEDICARE Member Subscriber Plan / Payer (Ef fective 2018-Present) Name:Ela Aceves Relation to Subscriber:Self Name:Ela Aceves Payer ID:[id number] Group ID:[id number] Type:Not on file Address: [place] [address] [place] [address] Care Teams Substation Operator Chief Relationship Specialty Start Date End Date Olga Barron MD [facility] [address] [facility] [place] [address] PCP - General Internal Medicine 04/14/24
--- OUTSIDE RECORDS SUMMARY | 2024-05-27 13:31 | XMS_ITS | Encounter Summary ---
Author Organization [employer] Address [address] [place] [address] Care Team Providers Care Sheet Metal Assembler Name Role Phone Olga Barron MD Primary Care Provider + Reason for Visit * Reason Onset Date Comments call from md office 04/14/2024 Encounter Details Date Type Department Care Team (Late st Contact Info) Description 04/14/[address] [phone] Eleonora Fortune PA [address] [place] [address] call from md office Social History Tobacco Use Types Packs/Day Years [...] as of this encounter Progress Notes * Stephanie Duque RN - 04/17/2024 1:18 PM EST Notes faxed to number below * Ivania Evans - 04/14/2024 11:08 AM EST Radha from patient's primary care office needs the last three office notes from visits with Eleonora Fortune to be faxed to them. Please fax to [phone]. documented in this encounter Plan of Treatment Not on file documented as of this encounter Visit Diagnoses Not on filedocumented in this encounter Care Teams Sheet Metal Assembler Relationship Specialty Start Date End Date Olga Barron MD [facility] [address] [place] [address] PCP - General Internal Medicine 04/14/24 documented as of this encounter
--- OUTSIDE RECORDS SUMMARY | 2024-05-27 13:31 | XMS_ITS | Data Portability ---
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 I have reviewed and agree with the Assessment and Plan as documented by the Economic Developer. We discussed the diagnostic uncertainty of home visits and the risk associated with this. We explained to the daughter via the phone I felt this to be an acceptable and reasonable amount of risk given the benefit of avoiding an ED visit. The patient's CG and daughter given the opportunity to ask questions. Advised if develops CP/severe SOB/turning blue/uncontrolle d n/v/d or black/bloody emesis or stool/ AMS/ syncope/ hi fever unresponsive to APAP to call 911-the daughter verbalized understanding of instructions to the medic [email or web address] Not available 07/10/2023 16:54:36 07/30/2023 07/30/2023 I provided real -time medical direction via phone for this encounter and was available for additional phone-based assistance as needed. I have reviewed and agree with the Assessment and Plan as documented by the Economic Developer. Patient given the opportunity to ask questions. Our service contacted for an assessment of: Urinary symptoms As per above, patient with approximately 24 hours of dysuria, frequency. No history of frequent urinary tract infections although does have numerous calls to this service for medical issues given her inability to ambulate and multiple, co-morbid medical condition.s Denies fever, chills, abdominal pain, back pain, flank pain. She has just completed a course of Keflex for a wound infection. Per hearing aide technician on the scene, Vital signs are stable and the patient is afebrile. Patient is nontoxic in appearance. UA is positive for leukocytes. Sample was from a SC as she is incontinent at baseline. Impression: Urinary symptoms and UTI Plan: Bactrim SS po times 3-days. Would benefit from urology referral, possible SPC cath and addition of hipprex if able to take. We discussed the diagnostic uncertainty of home visits and the risk associated with this. In this case, the patient and I felt this to be an acceptable and reasonable amount of risk given the benefit of avoiding an ED visit. We discussed the need to seek care urgently/emergen tly in the setting of any new or worsening serious symptoms, particularly fever chills [email or web address] Not available 07/30/2023 15:47:42 12/09/2023 12/09/2023 I have reviewed and agree with the assessment and plan as documented by the hearing aide technician. I provided real time medical direction for this encounter and was immediately available to provide additional phone based assistance as needed. History as noted by hearing aide technician. Pt with history of CAD, COPD, HTN, DM and dementia. Pt with history of chronic UTI symptoms, and was seen by [facility] 2 days ago with dysuria. Urine dip 3+ leukocytes and urine culture sent. Pt was started on Bactrim pending UCx results. Visit requested today since the pt continues to report feeling fatigued and still has dysuria. No fevers, vomiting or SOB. Of note, one of the pt's caregivers reportedly tested positive for Influenza recently so they are requesting Covid and Flu testing today. On exam, pt appears comfortable no distress. Vitals with mild tachycardia, O2 sat 93% on 2L (pt on O2 chronically) and T 99.s Lungs clear b/l. POC Covid and Flu both negative today. Urine culture from 12/06: no result yet in [facility]. Impression: Pt appears well and comfortable, still reporting dysuria. No vomiting or documented fevers. Lungs clear. Rapid Covid and Flu both negative today. Urine culture results from 12/06 not yet noted in pt's EHR. Family is told to continue the Bactrim as prescribed on 12/06 and to call and follow up with her primary care team to have them check the final UCx results tomorrow as they should be resulted by then. Primary care team: Please check urine culture results tomorrow and follow up with pt and family. Pt and family instructed to seek medical attention right away with any worsening or new symptoms, which are reviewed with them. [email or web address] Not available 12/09/2023 13:54:27 Plan of Treatment Reminders Order Date Submit Date Provider Last Modified By Organization Details Last Modified Time Details Appointments None recorded. Lab rapid SARS CoV 2 Ag, QL IA, respiratory specimen 2023 024 btils [facility], [address] [place] [address], [id number], 4 13:44:23 rapid flu (A+B) 2023 btils [facility], [address] [place] [address], [id number], 13:44:21 culture, urine 2023 024 JOANNA [facility] (Centralized Electronic Ordering - All Locations), Patient Can Go To The Location Of Their Choice, [id number] 12:05:51 urinalysis, dipstick 2023 024 JOANNA [facility], [address] [place] [address], [id number], 4 11:52:25 culture, urine 2023 024 JOANNA [facility] (Centralized Electronic Ordering - All Locations), Patient Can Go To The Location Of Their Choice, [id number] 4 14:06:25 urinalysis, dipstick 2023 024 JOANNA [facility], [address] [place] [address], [id number], 4 16:50:28 culture, urine 2023 024 JOANNA [facility] (Centralized Electronic Ordering - All Locations), Patient Can Go To The Location Of Their Choice, [id number] 4 06:08:03 urinalysis, dipstick 2023 024 JOANNA [facility], [address] [place] [address], [id number], 08:34:21 Referral None recorded. Procedures None recorded. Surgeries None recorded. Imaging None recorded. Medication Orders Bactrim DS 800 mg-160 mg tablet 2023 024 [email or web address] [facility], [address] [place], [address], 4 11:41:15 Bactrim DS 800 mg-[address] [id number], [address] [place], [address], 11:41:18 cefpodoxime 100 mg tablet 2023 JOANNA [facility], [address] [place], [address], 4 13:35:50 ceftriaxone 1 gram solution for injection 2023 024 [email or web address] [facility], [address] [place], [address], 4 13:34:28 Bactrim 400 mg-80 mg tablet 2023 024 JOANNA [facility], [address] [place], [address], 4 15:44:37 docusate sodium 100 mg capsule 2023 024 JOANNA [facility], [address] [place], [address], 4 16:58:27 Miralax 17 gram oral powder packet 2023 JOANNA [facility], [address] [place], [address], 4 16:58:24 cephalexin 250 mg capsule 2023 024 [email or web address] [facility], [address] [facility], [place], [address], 16:56:19 cephalexin 500 mg capsule 2023 024 JOANNA [facility], [address] [facility], [place], [address], 16:58:31 Patient TargetsNo targets recorded. Patient Instructions Encounter Date Encounter Id Patient Instructions Last Modified By Organization Details Last Modified Time 07/10/2023 [id number] application of wound dressing* [email or web address] Not available 07/10/2023 16:57:09 Reason for Referral None Reported. Results Created Date Observation Date Name Description Value Unit Range Abnormal Flag Note LastModifiedBy Organization Detail LastModifiedTime 07/30/19 24 08/01/2023 URINE CULTU RE, ROUTI NE urine culture, routine Final report Not Available [facility] ([facility]) [address] [place], [address], 08/01/2023 06:08:03 07/30/19 24 08/01/2023 URINE CULTU RE, ROUTI NE result 1 No growth Not Available [facility] ([facility]) [address] [place], [address], 08/01/2023 06:08:03 11/21/19 24 11/24/2023 URINE CULTU RE,CO MPREH ENSIV E urine culture,comp rehensive Final report Not Available [facility] ([facility]) [address] [place], [address], 11/24/2023 08:06:43 11/21/19 24 11/24/2023 URINE CULTU RE,CO MPREH ENSIV E result 1 Lactob acillu s specie s Great er than 100,0 00 colon y formi ng units per mL Susce ptibi lity not kary lly perfo rmed on this organ ism. Not Available [facility] ([facility]) [address] [facility], [place], [address], 11/24/2023 08:06:43 11/21/19 24 11/24/2023 URINE CULTU RE,CO MPREH ENSIV E result 2 Not applic able Not Available [facility] ([facility]) [address] [facility], [place], [address], 11/24/2023 08:06:43 12/07/19 24 12/09/2023 URINE CULTU RE,CO MPREH ENSIV E urine culture,comp rehensive Final report Not Available [facility] ([facility]) [address] [facility], [place], [address], 12/09/2023 12:05:51 12/07/19 24 12/09/2023 URINE CULTU RE,CO MPREH ENSIV E result 1 Lactob acillu s specie s Great er than 100,0 00 colon y formi ng units per mL Susce ptibi lity not kary lly perfo rmed on this organ ism. Not Available [facility] ([facility]) [address] [facility], [place], [address], 12/09/2023 12:05:51 12/09/19 24 12/09/2023 rapid flu (A+B) Flu negati ve Not Available [facility] [address] [place] [address], [id number], 12/09/2023 13:43:47 12/09/19 24 12/09/2023 rapid SARS CoV 2 Ag, QL IA, respi rator y speci men rapid SARS CoV 2 Ag, QL IA, respiratory specimen negati ve Not Available [facility] [address] [place] [address], [id number], 12/09/2023 13:43:43 Result Notes None recorded. Medical Equipment None Reported. Allergies No known drug allergies Medications Name Sig Start Date Stop Date Status Note LastModified by Organization Details LastModified Time delivery fee active Not Available Not Available Not Available quetiapine 25 mg tablet active Not Available Not Available No t Available furosemide 40 mg tablet active Not Available Not Available No t Available medroxyproges terone 10 mg tablet TAKE 1 TABLET BY MOUTH EVERY DAY active Not Available Not Available No t Available silver sulfadiazine 1 % topical cream active Not Available Not Available Not Available ipratropium 0.5 mg-albuterol 3 mg (2.5 mg base)/3 mL nebulization soln active Not Available Not Available Not Available torsemide 20 mg tablet active Not Available Not Available No t Available ammonium lactate 12 % lotion active Not Available Not Available Not Available Vitamin C 500 mg tablet active Not Available Not Available No t Available polyethylene glycol 3350 17 gram oral powder packet Take 17 g with 8 to 12 ounces of liquid every day that the patient has not had a bowel movement in the past 24 hours active Not Available Not Available No t Available cefpodoxime 200 mg tablet TAKE 1 TABLET BY MOUTH EVERY 12 HOURS FOR 10 DAYS active Not Available Not Available No t Available cefpodoxime 100 mg tablet Take 1 tablet every 12 hours by oral route for 5 days. active Not Available Not Available No t Available sulfamethoxaz ole 400 mg-trimethopr im 80 mg tablet Take 1 tablet every 12 hours by oral route for 3 days. active Not Available Not Available No t Available cephalexin 250 mg capsule Take 4 capsules by oral route. 2023 active Not Available Not Available Not Avai lable senna 8.6 mg tablet active Not Available Not Available Not Available donepezil 10 mg tablet active Not Available Not Available No t Available FreeStyle Lancets 28 gauge active Not Available Not Available Not Available prednisone 20 mg tablet active Not Available Not Available No t Available sertraline 100 mg tablet active Not Available Not Availabl e Not Available cyanocobalami n (vit B-12) 1,000 mcg tablet active Not Available Not Available Not Available melatonin 3 mg tablet active Not Available Not Available No t Available sulfamethoxaz ole 800 mg-trimethopr im 160 mg tablet Take 1 tablet every 12 hours by oral route for 5 days. active Not Available Not Available No t Available acetaminophen 500 mg tablet active Not Available Not Availabl e Not Available spironolacton e 25 mg tablet active Not Available Not Available Not Available nystatin-tria mcinolone 100,000 unit/gram-0.1 % topical ointment active Not Available Not Available Not Available ceftriaxone 1 gram solution for injection Take 1 g by injection route. 2023 active Not Available Not Available Not Avai lable phenazopyridi ne 100 mg tablet active Not Available Not Available Not Available cephalexin 500 mg capsule Take 2 capsules twice a day by oral route for 7 days. active Not Available Not Available No t Available simvastatin 20 mg tablet active Not Available Not Available Not Available nystatin 100,000 unit/gram topical cream APPLY TO THE AFFECTED AREA(S) BY TOPICAL ROUTE 2 TIMES PER DAY active Not Available Not Available No t Available polymyxin B sulfate 10,000 unit-trimetho prim 1 mg/mL eye drops active Not Available Not Available No t Available warfarin 5 mg tablet TAKE 1-2 TABLETS BY MOUTH AT THE SAME TIME EVERY DAY,DO NOT CHANGE DIETARY HABITS,MAY CAUSE BLEEDING active Not Available Not Available No t Available brimonidine 0.2 % eye drops active Not Available Not Available Not Available docusate sodium 100 mg capsule Take 1 capsule twice a day by oral route. active Not Available Not Available No t Available gabapentin 300 mg capsule active Not Available Not Available Not Available dorzolamide 22.3 mg-timolol 6.8 mg/mL eye drops active Not Available Not Available Not Available mupirocin 2 % topical ointment active Not Available Not Available Not Available gabapentin 100 mg capsule active Not Available Not Available Not Available nystatin 100,000 unit/gram topical powder APPLY TO THE AFFECTED AREA(S) BY TOPICAL ROUTE 3 TIMES PER DAY active Not Available Not Available No t Available levofloxacin 500 mg tablet TAKE 1 TABLET BY MOUTH EVERY 24 HOURS FOR 5 DAYS active Not Available Not Available No t Available estradiol 0.01% (0.1 mg/gram) vaginal cream active Not Available Not Availabl e Not Available ketoconazole 2 % topical cream active Not Available Not Available Not Available metformin ER 500 mg tablet,extend ed release 24 hr active Not Available Not Available Not Available doxycycline hyclate 100 mg tablet active Not Available Not Available No t Available amoxicillin 875 mg-potassium clavulanate 125 mg tablet TAKE 1 TABLET BY MOUTH EVERY 12 HOURS. START TOMORROW MORNING active Not Available Not Available No t Available Ventolin HFA 90 mcg/actuation aerosol inhaler active Not Available Not Available Not Available Arthritis Pain Relief (capsaicin) 0.075 % topical cream active Not Available Not Availabl e Not Available Novolog FlexPen U-100 Insulin aspart 100 unit/mL (3 mL) subcutaneous active Not Available Not Available Not Available memantine 10 mg tablet active Not Available Not Available No t Available memantine 5 mg tablet active Not Available Not Available No t Available nitrofurantoi n monohydrate/m acrocrystals 100 mg capsule Take 1 capsule every 12 hours by oral route for 7 days. active Not Available Not Available No t Available Antifungal (clotrimazole ) 1 % topical cream active Not Available Not Available Not Available UltiCare Pen Needle 31 gauge x 5/16 active Not Available Not Availabl e Not Available cholecalcifer ol (vitamin D3) 25 mcg (1,000 unit) tablet active Not Available Not Available Not Available FreeStyle Lite Strips active Not Available Not Available Not Available Lantus Solostar U-100 Insulin 100 unit/mL (3 mL) subcutaneous pen active Not Available Not Available Not Available FreeStyle Elba Lite kit active Not Available Not Available Not Available diclofenac 1 % topical gel active Not Available Not Availabl e Not Available melatonin 5 mg tablet active Not Available Not Available No t Available Lumigan 0.01 % eye drops active Not Available Not Available Not Available Xarelto 20 mg tablet active Not Available Not Available Not Available Myrbetriq 50 mg tablet,extend ed release active Not Available Not Available N ot Available Eliquis 5 mg tablet active Not Available Not Available Not Available Farxiga 10 mg tablet active Not Available Not Available Not Available Alevazol 1 % topical ointment active Not Available Not Available Not Available Trulicity 1.5 mg/0.5 mL subcutaneous pen injector active Not Available Not Available Not Available FreeStyle Robby 2 Sensor kit active Not Available Not Available N ot Available FreeStyle Robby 2 Hendrum active Not Available Not Available Not Available Trulicity 3 mg/0.5 mL subcutaneous pen injector active Not Available Not Available Not Available Ozempic 0.25 mg or 0.5 mg (2 mg/3 mL) subcutaneous pen injector active Not Available Not Available Not Available Vitals Date Recorded Heart rate Respiratory rate Oxygen saturation Oxygen saturation in Arterial blood by Pulse oximetry Inhaled oxygen flow rate Body weight Body temperature Body height Systolic blood pressure Diastolic blood pressure Provider Name and Address Organization Details Last Updated DateTime 4 99 /min 18 /min 94 % 94 % 2 L/min 083243. 84 g 98.4 [degF] 154.94 cm 115 mm[Hg] 71 mm[Hg] Not Available [facility] 4 14:54:56 Date Recorded Heart rate Respiratory rate Body temperature Oxygen saturation Oxygen saturation in Arterial blood by Pulse oximetry Systolic blood pressure Diastolic blood pressure Provider Name and Address Organization Details Last Updated DateTime 4 94 /min 18 /min 98.3 [degF] 97 % 97 % 132 mm[Hg] 78 mm[Hg] Not Available [facility] 4 14:56:23 Date Recorded Body temperature Respiratory rate Heart rate Oxygen saturation Oxygen saturation in Arterial blood by Pulse oximetry Inhaled oxygen flow rate Systolic blood pressure Diastolic blood pressure Provider Name and Address Organization Details Last Updated DateTime 4 98.2 [degF] 18 /min 103 /min 94 % 94 % 2 L/min 126 mm[Hg] 70 mm[Hg] Not Available [facility] 4 13:24:09 Date Recorded Oxygen saturation Oxygen saturation in Arterial blood by Pulse oximetry Body temperature Respiratory rate Oxygen saturation Oxygen saturation in Arterial blood by Pulse oximetry Inhaled oxygen flow rate Heart rate Systolic blood pressure Diastolic blood pressure Provider Name and Address Organization Details Last Updated DateTime 4 95 % 95 % 98.6 [degF] 16 /min 95 % 95 % 2 L/min 105 /min 113 mm[Hg] 76 mm[Hg] Not Available [facility] 4 11:10:00 Date Recorded Oxygen saturation Oxygen saturation in Arterial blood by Pulse oximetry Respiratory rate Body temperature Heart rate Systolic blood pressure Diastolic blood pressure Provider Name and Address Organization Details Last Updated DateTime 4 93 % 93 % 14 /min 99.2 [degF] 110 /min 106 mm[Hg] 57 mm[Hg] Not Available [facility] 4 13:40:37 Social History None recorded. Functional Status None recorded. Mental Status None recorded. Family History Nothing Reported. Medical History No medical history recorded. Gynecological HistoryNo gynecological history recorded. Obstetrics History GPAL:G 0 P 0 0 0 0 Past Encounters Encounter ID Performer Location Encounter Start Date Encounter Closed Date Diagnosis/Indication Diagnosis SNOMED-CT Code Diagnosis ICD10 Code Diagnosis Note [id number] Yris Hampton MD [facility] [address] [place] [id number] 09/01/2021 15:25:20 12/05/2021 16:01:15 Open wound of groin without complication 01498816 S31.109A Pt with open wound in groin between pannus and thigh which per hearing aide technician descriptio n is c/w skin tear from friction. No signs of infection on hearing aide technician exam. Plan to con't local wound care, barrier cream, monitor for si/sx infection. Red flag symptoms reviewed, pt instructed to call 911 if condition worsens or new symptoms develop, pt expressed understand ing. I have reviewed and agree with the assessment and plan as documented by the hearing aide technician. I provided real time medical direction for this encounter and was immediatel y available to provide additional phone based assistance as needed. [id number] Silverio Lezama MD [facility] [address] [place] [phone] 10/26/2021 17:00:45 12/21/2021 19:21:09 Candidiasis of skin 92940966 B37.2 [id number] Vanessa Gan MD [facility] [address] [place] [phone] 11/26/2021 15:49:26 12/13/2021 11:40:34 Candidiasis of skin 19612428 B37.2 advised to increase nystatin( refills sent) to 3 x per day- stop vaseline as likely making area too moist-may increase Tylenol given stated weight to 1300 mg 3 x per day- since LD was 9 am and is now 4 pm family will give her dose now. [facility] reviewed s/s cellulitis - to recheck at once if they occur/ otherwise f/u PCP w/in 48 hrs [id number] Smooth Winn MD [facility] [address] [place] [phone] 12/07/2021 17:20:26 12/25/2021 13:04:43 Acute urinary tract infection [id number] N39.0 Will treat empiricall y with Macrobid. [id number] Vanessa Gan MD [facility] [address] [place] [phone] 01/19/2022 10:27:20 01/19/2022 15:31:11 Urinary tract infectious disease [id number] N39.0 [id number] Maximiliano Narvaez MD [facility] [address] [place] [phone] 04/02/2022 11:35:50 04/04/2022 12:24:14 Dysuria [id number] R30.0 [id number] Yocasta Lauren MD [facility] [address] [place] [phone] 06/16/2022 13:13:38 10/23/2022 14:49:34 Pain in lower limb 64552791 M79.604 New pain in posterior aspect right LE. pt bed bound, but normally able to sit up. Today unable to do so 2/2 pain. Has h/o DVT and reportedly this feels similar though she is on warfarin. Exam notable for palpable indurated mass . BMP unremarkab le. Share decision making with family- explained that etiology of sx is unclear, ddx includes DVT. Family elected to take her to ED. [id number] Bill Miller MD [facility] [address] [place] [phone] 07/09/2022 12:35:11 07/11/2022 10:06:20 Acute urinary tract infection [id number] N39.0 This 76-year-ol d female with a history of frequent UTIs called [facility] with acute urinary symptoms for several days. Her U/A was positive. I ordered a U/C and treatment with Levaquin 500 mg daily for five days. She will follow-up with her PCP. The patient agreed with this plan. [id number] Ab Bob MD [facility] [address] [place] [phone] 08/11/2022 13:51:19 08/13/2022 10:19:30 Acute cystitis 80837795 N30.00 Buring dysuria and suprapubic pressure. UA shows LE+. Will send culture and treat empiricall y. VS reassuring . No concern for serious cause. Advised re: red flags/sky er signs. F/u PRN. Primary team- patient and family feel they are in need of many supplies and other care coordinati on items. Please call to follow up. Genitocrur al intertrigo caused by Rekha [id number] B37.2 As noted, we were called to see this patient regarding concerns of multiple rashes in setting of moisture/s kin maceration /possible fungal rash. Evaluation in the field was performed by my hearing aide technician colleague, as noted above, I provided real-time direction and supervisio n for this visit. The evaluation revealed non-toxic appearing patient with multiple skin lesions appearing like diaper rash. Impression :Irritant vs rekha dermatitis with moisture maceration as well. Plan:Reass uranceBarr ier cream to ulcerated/ angry lesionsNys tatin to dry the areas, rylee skin foldsAvoid dwelling in soaked diapersCou ld be a role for kvng or similar nightly Primary care, considerfo llow-up call next week Dispositio n: We discussed the diagnostic uncertaint y of home visits and the risk associated with this. In this case, the patient and I felt this to be an acceptable and reasonable amount of risk given the benefit of avoiding an ED visit. We discussed the need to seek care urgently/e mergently in the setting of any new or worsening serious symptoms, particular ly fever, chills, pain, other unexpected symptoms. [id number] Vanessa Gan MD [facility] [address] [place] [phone] 09/04/2022 15:29:38 09/05/2022 10:43:51 Urinary symptoms [id number] R39.9 likely uti- given 1000 mg keflex now- will get rx from pharmacy tomorrow( duplicate order entered in error- only received 1000 mg during [facility] visit- Candidal intertrigo 2661 54342 B37.2 to crural area- nystatin prescribed above [id number] Vanessa Gan MD [facility] [address] [place] [phone] 10/11/2022 10:58:48 10/14/2022 21:13:56 Urinary symptoms [id number] R39.9 possible uti- given 1000 mg keflex now- will get rx from pharmacy tomorrow- advised would call if UC directed different abx needed or if could stop abx early- although is spilling sugar in urine FS ok- advised close f/u with pcp- pls consider urology referral may have Tylenol 1 gram every 6-8 hrs given stated weight prn( has in the home)- patient/ caregiver verbalized understand ing of instructio ns to the medic Candidal intertrigo [id number] B37.2 right sub panus area- nystatin prescribed - had been using/ ranout [id number] Marilyn Dutta MD Main - [facility] [address] [place] [address] [phone] 11/25/2022 20:59:57 11/27/2022 11:11:17 Acute urinary tract infection [id number] N39.[id number] MD Main - [facility] [address] [place] [address] [phone] 01/10/2023 19:06:05 01/10/2023 22:45:34 Urinary symptoms [id number] R39.9 [id number] Kyle Nunez MD Main - [facility] [address] [place] [address] [phone] 01/22/2023 13:25:17 01/22/2023 22:43:08 Hematochezia [id number] K92.1 Per daughter was in the hospital for UTI and discharged with one day of keflex. Reportedly still has symptoms and is more confused than normal. When hearing aide technician attempted to perform straight cath for urine, found a large amount of bright red blood in the diaper. Given altered mental status and unclear source of suspected active bleeding, will transport to the ED for futher evaluation . [id number] Silverio Lezama MD Main - [facility] [address] [place] [address] [phone] 01/31/2023 21:01:03 02/01/2023 13:05:13 Dysuria [id number] R30.0 [id number] Marilyn Dutta MD Main - [facility] [address] [place] [address] [phone] 03/26/2023 14:48:45 03/26/2023 21:46:28 Urinary symptoms [id number] R39.9 [id number] Yris Hampton MD Main - [facility] [address] [place] [address] [phone] 04/18/2023 20:24:46 04/18/2023 22:27:42 Urinary symptoms [id number] R39.9 Evaluation in the field was performed by my hearing aide technician colleague, as noted above, I provided real-time direction and supervisio n for this visit. 77yo F COPD, CAD, Hx PE, GERD, Bedbound, HTN, incontinen t, Recurrent UTI and dementia empiricall y treated for UTI x2 in past month with neg UCx (once [facility], once [facility]) p/w family reporting wincing w/ urination. no fever, chills, baseline AMS. VS notable for borderline tachycardi a but afebrile. Urine dip w/ leuks and trace blood but neg nitrites. D/w family risks of empiric tx without any documented UTI rylee given multiple abx courses recently, agree to send UCx and await results prior to tx. Confirmed phone number to reach family if UCx is positive, would tx with nitrofuran toin and pyridium. Will call back if fevers, AMS, worsenig sx. We discussed the diagnostic uncertaint y of home visits and the risk associated with this. In this case, the patient and I felt this to be an acceptable and reasonable amount of risk given the benefit of avoiding an ED visit. We discussed the need to seek care urgently/e mergently in the setting of any new or worsening serious symptoms, shortness of breath, cough, chest pain, fever. Aliyah Lundberg MD Main - [facility] [address] [place] [address] [phone] 05/26/2023 12:41:14 05/26/2023 22:51:39 Urinary symptoms [id number] R39.9 77 year old female with dementia and previous hospitaliz ations for UTI, being evaluated for one day of acute confusion and dark colored urine. Patient's family reports similar episodes have occurred with UTI's in the past. She is tolerating PO and is afebrile. Her last UTI was in April. Exam notable for a calm appearing alert female with normal vital signs, POC urinalysis notable for leukocytes and blood. Presentati on suggestive of altered mental status in the setting of likely recurrent pyelonephr itis, without signs of sepsis. Previous culture data from April showing MDR with sensitivit y to ceftriaxon e, therefore IV ceftriaxon e ordered, with remaining PO course sent to pharmacy to start tomorrow. Culture sent due to history of MDR. I have reviewed and agree with the assessment and plan as documented by the hearing aide technician. I provided real-time medical direction for this encounter and was immediatel y available to provide additional phone-base d assistance as needed. We discussed the diagnostic uncertaint y of home visits and associated risks. We discussed the need to seek care urgently/e mergently in the setting of any new or worsening symptoms. [id number] aVnessa Gan MD Main - [facility] [address] [place] [address] [phone] 07/10/2023 14:54:44 07/11/2023 10:55:24 Pressure injury of buttock [id number] L89.309 Concern given his story of purulent drainage and slight erythema of early cellulitis will cover with cephalexin .I advised of the need to turn frequently using pillows to support her back so there is no pressure on her pelvic area. Note sent to CP regarding need for daily VNA wound care/if [facility] will not fill my prescripti on for ring cushion I requested the pulmonary care nurse to work with PCP team to obtain for the patient. The medics tried to attempt to show the CG how to prop her up with pillows lying on her side to avoid pressure on the sore, but I included in my note, via CRC, to the CP the request for assistance with training CGM family how to turn this patient to keep her off the area Constipation [id number] K5 9.00 I requested the medic discussed with the patient's daughter that it is imperative that she gets her senna 2 pills at bedtime every night-due to 6 days without BM will add docusate and MiraLAX-in structions given to hold the docusate if she develops loose stool and only give the MiraLAX if no BM for 24 hours [id number] Marilyn Dutta MD Main - [facility] [address] [place] [address] [phone] 07/30/2023 14:56:17 07/30/2023 20:06:11 Urinary symptoms [id number] R39.9 [id number] Smooth Winn MD Main - [facility] [address] [place] [address] [phone] 11/21/2023 13:06:16 11/21/2023 22:57:01 Dysuria [id number] R30.0 Patient with signs and symptoms of UTI (urinary retention) with positive leuk esterase and nitrite. Per prior culture data, sensitive to cephalospo rins. Will give 1gm CTX now and treat with cefpodoxim e and send urine for culture. Discussed red flag signs for which to seek higher level of care. [id number] Smooth Winn MD Main - [facility] [address] [place] [address] [phone] 12/07/2023 11:09:58 12/09/2023 22:35:47 Urinary symptoms [id number] R39.9 Acute on chronic symptoms of UTI; prior sensitivit y to Bactrim. Recent hospitaliz ation with normal [facility] and GFR. Will send urine for culture and treat empiricall y with Bactrim x1 now and for 5 days. Discussed red flag signs for which to seek higher level of care. [id number] Maximiliano Narvaez MD Main - [address] [phone] 12/09/2023 13:40:34 12/09/2023 22:58:04 Dysuria [id number] R30.0 Health Concerns Section Related Observation LastModified by Organization Detai ls LastModified Time None Recorded Concern Status LastModified by Organization Details LastModified Time None Recorded Advance Directives Directive None Recorded Payers Encounter Date Sequence Insurance Name Policy Number Policy Villa Covered Member ID Villa Member ID Guarantor Name 07/10/2023 1 [facility] [employer] - DOS ON OR AFTER 2022 - DUAL ELIGIBLE - CARE HOME OPTIONS AND ONE CARE (MEDICARE REPLACEMENT/ADV ANTAGE - HMO) Ela Aceves [id number] Ela Aceves 07/30/2023 1 [facility] [employer] - DOS ON OR AFTER 2022 - DUAL ELIGIBLE - CARE HOME OPTIONS AND ONE CARE (MEDICARE REPLACEMENT/ADV ANTAGE - HMO) Ela Aceves [id number] Ela Aceves 11/21/2023 1 [facility] [employer] - DOS ON OR AFTER 2022 - DUAL ELIGIBLE - CARE HOME OPTIONS AND ONE CARE (MEDICARE REPLACEMENT/ADV ANTAGE - HMO) Ela Aceves [id number] Ela Aceves 12/07/2023 1 [employer] - DOS ON OR AFTER 2022 - DUAL ELIGIBLE - CARE HOME OPTIONS AND ONE CARE (MEDICARE REPLACEMENT/ADV ANTAGE - HMO) Ela Aceves [id number] Ela Aceves 12/09/2023 1 [employer] - DOS ON OR AFTER 2022 - DUAL ELIGIBLE - CARE HOME OPTIONS AND ONE CARE (MEDICARE REPLACEMENT/ADV ANTAGE - HMO) Ela Aceves [id number] Ela Aceves Notes Date Note Type Note Provider Name and Address Organization Details Recorded Time 07/10/2023 text/html HPI: Dizziness and bed sore concern.? ? ? ...................... ...................... ...................... ...................... ...................... ...................... ......... CRC Nurse Triage Notes (Lindy Fowler): Reason For Request: wound care Chief Complaints: Wound Care PMH: Hypertension, Heart Disease, Diabetes, CHF Allergies: Unknown Comments: Verified address/ / Member is a 77 yr old female, PMH HTN / DM/ CHF , bed bound Family checks blood sugar 3 times a day with insulin support My gr's daughter is calling for wound care on the coccyx. The family has been cleaning and monitoring the area. Per a family member, it does not look like it is healing well. The wound has purulent/bloody drainage. Per family, the VNA/ MD visit and have given her ointment but it is not helping .The team has not seen the wound in a few weeks ...................... ...................... ...................... ...................... ...................... ...................... ......... Economic Developer Note From Manuel Mariee[facility]. Arrived to home where pt was lying supine in bed in care of QUALITY INSPECTOR. Pt's daughter was present via phone and served as primary historian given pt's dementia. Unable to have paper consent form filled out given pt's dementia and daughter who manages her affairs not present in home. Daughter reports 1 month of sore on pt's left buttock. Pt is obese and bed bounded for last approximately 8 years. Daughter reports visiting nurse came out to home and provided them with some adhesive dressings and a spray and were advised to keep it dry. Daughter says she feels like it has been getting worse. Bleeding and purulent discharge reported. Wound visualized and noted to be about the size of a dime in diameter. Bleeding present, however no pus at this time. Image taken for [facility] review. Abdomen soft and non tender. Daughter does report no bowel movements in last 6 days. V/S taken and WNL. Pt afebrile. Consulted with [facility] Dr. Gan. Dr. Gan advised dressing the wound, and counseling the family on ways to prop patient on her side with pillows to get pressure off wound. Donut pillow recommended. Pt given 1 gram of cephalexin with remainder of script sent to pharmacy. Pt also prescribed miralax and docusate for constipation issues. Red flags for ED reviewed with pt and family. Patient education provided. ...................... ...................... ...................... ...................... ...................... ...................... ......... Disposition: FulfilledSEGMD: Patient is bedbound and spends most of her day lying on her, thus there is pressure on the buttock area. The decubitus has been going on per her daughter approximately 1 month. She is also been constipated last bowel movement was 6 days ago. She has Senna on her med list to take 2 nightly. Apparently her granddaughter, who is not present is her QUALITY INSPECTOR, and the daughter was unable to verify that she is indeed getting that nightly. There has been no fever, chills, nausea or vomiting, shortness of breath, abdominal pain or chest pain. She does report pain in her buttocks for which she is had no medication. They do have Tylenol in the home. 500 mg. The patient is anticoagulated on Xarelto Family has been monitoring her blood sugar. It was 158 this a.m. and 143 postprandial 1 hour prior to our arrival Vanessa Gan MD [address] [place] [address],[address], [place], [phone], [employer] 07/10/2023 16:58:18 07/30/2023 text/html HPI: 77 y/o female- PMH: Dementia, stage 2 pressure ulcer, DM, Depression, MAXIME, Chronic Pain, CAD, COPD, Recurrent UTI.Patients daughter called with reports of foul smelling urine, worsening hallucinations and pain while passing urine. Caregiver denies any fever/chills. ...................... ...................... ...................... ...................... ...................... ...................... ......... CRC Nurse Triage Notes (Raul Lawrence): Comments: Reviewed HPI ...................... ...................... ...................... ...................... ...................... ...................... ......... Economic Developer Note From Christian Sloan: Dispatched to the call address for the female with possible UTI. Pt has been seen by [facility] team multiple times for the same complaint. Pts care givers state Pt has complained about burning urination, lethargy and foul smelling urine. Pt was seen earlier this month by [facility] for pressure ulcers and finished a course of abx 6 days ago. Pt denies abd pain or CVA tenderness. Pt was found laying in bed, CAOx3, airway open and patent, breathing non labored, able to speak in full sentences, -JVD, -HEENT, skin PWD with good turgor, abd soft non tender/distended, mucous membranes pink and moist, +CMSx4, A-Febrile. Strait cath preformed with sterile technique. UA (+), sample obtained for culture. C consulted. Pt given 1 dose of Bactrim and script called into preferred pharmacy. Red flags discussed. ALL times are approx. ...................... ...................... ...................... ...................... ...................... ...................... ......... Disposition: Fulfilled Marilyn Dutta MD [address] [place] [address],[address], [place], [phone], [employer] 07/30/2023 15:48:14 11/21/2023 text/html HPI: UTI concern. ...................... ...................... ...................... ...................... ...................... ...................... ......... CRC Nurse Triage Notes (Raul Lawrence): Chief Complaints: UTI/Pyelonephritis PMH: Hypertension, Heart Disease, Diabetes, CHF Other Allergies: NKDA Comments: Hand Cementer verified the member's name//address and phone number. Education provided on the response time and the member was advised to monitor reported s/s and seek emergency treatment if needed. CG reports the member is feeling unwell with UTI symptoms - Increased frequency/urgency and burning - Increased confusion - Decreased PO take - unknown fever - Member is bedbound - S/S for 1 day - Wellness visit requested Economic Developer Organization Information for Christian Sloan Legal Name: [employer] Address: [address] [place] [address], [employer]b [employer] Programmer: Ramses Perales MD [place] No.: [id number] Economic Developer POC Test Results from Christian Sloan Urine Dipstick (13:24:22) Urine leukocytes: 500+ LIZ Urine nitrites: + NIT Urine urobilinogen: - URO Urine protein: + PRO Urine pH: 6 pH Urine blood: - BLO Urine specific gravity: 1.005 SG Urine ketones: + KET Urine bilirubin: - MARK Urine glucose: - GLU ...................... ...................... ...................... ...................... ...................... ...................... ......... Economic Developer Note From Christian Sloan: Dispatched to the call address for the female with UTI signs/symptoms. third officer advises that Pt has been more lethargic the last couple of days, has diminished appetite and complains of burning when urinating, frequency and urinary retention. Pt is known to [facility] crews for having UTIs but daughter states her last one was months ago. She has discussed different options with her PCP. Her PCP advises against a catheter but suggests a pure wick, family advises they cannot afford one. Pt has maintained PO hydration but has not eaten more than a little bit of fruit today. Pt denies fevers/cp/sob.Pt was found laying in bed, CAOx4, airway open and patent, breathing non labored, able to speak in full sentences, -JVD, -HEENT, skin PWD with good turgor, abd soft non tender/distended, mucous membranes pink and moist, +CMSx4, -CVA tenderness, pupils PERRL. Strait cath preformed. approx 450mL taken. UA (+) for UTI. Sample obtained for culture. C consulted. Pt given 1g IM Ceftriaxone (L Deltoid). Script called into preferred pharmacy. Red flags discussed. ALL times are approx. ...................... ...................... ...................... ...................... ...................... ...................... ......... Disposition: Fulfilled Smooth Winn MD [address] [facility],[address], [place], [phone], [employer] 11/21/2023 17:03:27 12/07/2023 text/html HPI: 78 y/o femalePMH- Dementia, Sleep Apnea, CAD, Pulmonary HTN, HF, Pressure Ulcer, Recurrent UTI's, Hx PEPatients daughter, Concetta, called to report patients change in mental status and reports that patient is crying during urination reporting pain/discomfort. Patient was empirically treated last hospitalization on 11/26 with no clear source of infection. Patients daughter reports patients mental status is worsening and concerned for UTI. Agreeable to [facility] for possible UTI/COVID. ...................... ...................... ...................... ...................... ...................... ...................... ......... CRC Nurse Triage Notes (Lindy Fowler): Chief Complaints: Altered Mental Status, UTI/Pyelonephritis PMH: Hypertension, Heart Disease, Diabetes, CHF Comments: CRC RN DID NOT NEED FURTHER INFO---- call to member as we cannot accommodate a visit this evening, call back number left for any questions, will r/s for tomorrow 12/06- Economic Developer Organization Information for [employer]Tyrel Abine Legal Name: [facility] Address: [address] [place] [address], [place] [address], [employer]b [employer] Programmer: Sohail Cline MD CLIA No.: [id number] Economic Developer POC Test Results from [employer] Urine Dipstick (11:18:36) Urine leukocytes: 3+ LIZ Urine nitrites: - NIT Urine urobilinogen: - URO Urine protein: 2+ PRO Urine pH: 5.0 pH Urine blood: 2+ BLO Urine specific gravity: 1.020 SG Urine ketones: - KET Urine bilirubin: - MARK Urine glucose: - GLU ...................... ...................... ...................... ...................... ...................... ...................... ......... Economic Developer Note From Tyrel Maria: Pt? s daughter reports pt was seen by Nate two weeks ago, dx with a UTI, rx ABX. Daughter sts pt was not improving on ABX, sent to [facility]. [facility]? s UC revealed mixed mile, tx with 4 days of IV ceftriaxone, d/c home with one day of augmentin. Daughter sts the dysuria did not improve in the hospital and is still present today. Daughter denies the pt having any AMS, ABD pain, flank pain, f/n/v/d. NKDA. Pt is alert, NAD. VSS. Afebrile. Non focal neuro exam. Lungs CTA. Benign ABD exam. No CVA tenderness. No LE edema. Straight cath for UA: dark yellow, cloudy, suggestive of infection. UC sent to [facility]. Pt treated with Bactrim DS. Daughter instructed to increase PO fluids, f/u with PCP and to seek emergent medical care for new or worsening sx, which are reviewed with her. ...................... ...................... ...................... ...................... ...................... ...................... ......... Disposition: Fulfilled Smooth Winn MD [address] [facility],[address], [place], [phone], [employer]URMAN 12/07/2023 13:31:15 12/09/2023 text/html This was a super vised home visit with hearing aide technician Tyrel Maria. HPI: 78 y/o femalePMH- CAD, COPD, DM. HTN, AlzheimersPatient currently being seen by Dr. Barron and is presenting with tachycardia, tachypneic, oxygen saturation 93. According to caregivers one of patients QUALITY INSPECTOR's tested positive for FLU. Dr. Barron is requesting visit for POC flu swab. ...................... ...................... ...................... ...................... ...................... ...................... ......... CRC Nurse Triage Notes (Lindy Fowler): Chief Complaints: Shortness of Breath/Dyspnea, Tachycardia/Palpitatio ns PMH: Hypertension, Heart Disease, Diabetes, CHF Comments: spoke to daughter jazzmine am , she is on bactrim for a Possible UTI Lactobacillus [id number]? G reater than 100,000 colony forming units per mLSusceptibility not normally performed on this organisThe patient was prescribed bactrim at the time of the visit. Economic Developer Organization Information for Tyrel Maria Kaylen Legal Name: [facility] Address: [address] [place] [address], [place] [address], [employer] Programmer: Sohail Cline MD [place] No.: [id number] Economic Developer POC Test Results from Tyrel Maria Rapid COVID antigen (13:37:44) COVID: - Rapid influenza antigen (13:37:45) Flu: - ...................... ...................... ...................... ...................... ...................... ...................... ......... Economic Developer Note From Tyrel Maria: I visited the pt on Saturday for complaints of dysuria, sent out UC and started on Bactrim. Per pt? s daughter, one of the pt? s QUALITY INSPECTOR? s tested positive for the flu and they are requesting a POC flu test today. Pt is still c/o dysuria and generalized weakness. Pt denies CP, SOB, EDWARDS, f/n/v/d. Pt is alert, NAD. Mild tachycardia, VS otherwise stable. SpO2 93%. Non focal neuro exam. Lungs CTA. Benign ABD exam. Rapid covid and flu negative. Pt/daughter instructed to continue the bactrim, increase oral hydration and to f/u with PCP tomorrow. Red flags reviewed. ...................... ...................... ...................... ...................... ...................... ...................... ......... Disposition: Fulfilled Maximiliano Narvaez MD [address] [facility],[address], [place], [address], [employer] 12/09/2023 14:13:26 OBGyn Episode No OBEpisode recorded.
--- OUTSIDE RECORDS SUMMARY | 2024-05-27 13:31 | XMS_ITS | Continuity of Care Document ---
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 Name Role Phone Iam WESTON, Kimmy Primary Care Physician [phone] [id number] Date(s): 03/19/24 - 05/10/[address] [place], [place] [address] Attending Physician: Cristal Reynolds MD Referring Physician: Kimmy Vitale NP Encounter Type: Pre Office Visit Allergies, Adverse Reactions, Alerts No Known Medication Allergies Immunizations Given and Recorded Vaccine Date Status Refusal Reason influenza virus vaccine, inactivated 02/25/23 Give n influenza virus vaccine, inactivated 01/24/22 Stevo rded influenza virus vaccine, inactivated 02/28/21 Stevo rded influenza virus vaccine, inactivated 03/07/20 Stevo rded influenza virus vaccine, inactivated 02/27/19 Stevo rded influenza virus vaccine, inactivated 01/11/19 Give n influenza virus vaccine, inactivated 05/28/18 Stevo rded influenza virus vaccine, inactivated 02/08/17 Give n influenza virus vaccine, inactivated 01/11/16 Give n influenza virus vaccine, inactivated 03/07/15 Give n influenza virus vaccine, inactivated 1 01/22/14 Gi june influenza virus vaccine, inactivated 02/13/13 Give n influenza virus vaccine, inactivated 2 04/11/12 Gi june influenza virus vaccine, inactivated 3 03/21/11 Gi june influenza virus vaccine, inactivated 4 01/13/10 Gi june influenza virus vaccine, inactivated 5 12/29/08 Gi june influenza virus vaccine, inactivated 6 01/21/07 Gi june SARS-CoV-2 (COVID-19) mRNA-1273 vaccine 02/14/21 R ecorded SARS-CoV-2 (COVID-19) mRNA-1273 vaccine 06/24/20 R ecorded SARS-CoV-2 (COVID-19) mRNA-1273 vaccine 05/27/20 R ecorded pneumococcal 23-valent vaccine 03/07/20 Recorded pneumococcal 13-valent vaccine 05/28/18 Recorded pneumococcal 13-valent vaccine 10/11/15 Given tetanus/diphtheria/pertussis, acel(Tdap) 04/24/17 Given influ virus vac, H1N1, inactive(oldterm) 7 03/04/09 Given Influenza Vaccine (oldterm) 8 01/01/08 Given Pneumococcal Poly (PPV23) (oldterm) 9 08/27/07 Giv en tetanus-diphtheria toxoids (Td) 10 04/23/07 Given Influenza Virus Vaccine (oldterm) 11 01/03/06 Give n 1Result Comment: [01/22/2014] VIS in Danish given. 2Admin Note: VIS 10-10 3Admin Note: flulaval vis given vis date 10/24/2010 4Admin Note: VIS GIVEN VIS DATE 11/08/2009 5Admin Note: Given at [facility]. 6Admin Note: VIS GIVEN 7Admin Note: VIS 12/31/08 8Admin Note: VIS given in Danish 9Admin Note: VIS given in Danish 10Admin Note: VIS given in Danish 11Admin Note: VIS in SP given Medications albuterol CFC free 90 mcg/inh inhalation aerosol 180 mcg, 2, puffs, Inhalation, 4 times a day, PRN, Refills 0, Maintenance, 04/26/20 3:56:00 PM EST, Inhaler Start Date: 04/26/20 Status: Ordered Repeat number: 1 ammonium lactate 12% topical lotion 1 application, Topically, 2 times a day, 0 Refills, Maintenance, 11/24/23 12:11:00 PM EDT, Lotion, Partial fill upon patient request if the prescription is for a schedule II opioid drug. Start Date: 11/24/23 Status: Ordered Repeat number: 1 brimonidine 0.2% ophthalmic solution 1 drops, Eyes, Both, 2 times a day, 0 Refills, Maintenance, 10/28/19 4:32:00 PM EDT Start Date: 10/28/19 Status: Ordered Repeat number: 1 capsaicin 0.075% topical cream 1 application, Topically, 2 times a day, Maintenance, 11/24/23 12:12:00 PM EDT, Cream, Partial fill upon patient request if the prescription is for a schedule II opioid drug. Start Date: 11/24/23 Status: Ordered Repeat number: 1 Cosopt ophthalmic solution 1, drops, Eyes, Both, Every 12 hours, 0 Refills Start Date: 01/25/07 Status: Ordered Repeat number: 1 D 1000 IU oral tablet 1 tablet = 1,000 International_Units, By Mouth, Daily, # 30 tablet, 0 Refills, Maintenance, 12/30/2011:56:00 PM EDT, Tablet Start Date: 12/30/19 Status: Ordered Quantity: 30.0 Unit: tablet Repeat number: 1 estradiol 0.1 mg/g vaginal cream Vaginally, 3 times a week as directed, Maintenance, 11/24/23 12:13:00 PM EDT, Partial fill upon patient request if the prescription is for a schedule II opioid drug. Start Date: 11/24/23 Status: Ordered Repeat number: 1 famotidine 20 mg oral tablet 20 mg, 1, tablet, By Mouth, Daily, PRN, send in bottle do not put in bubble pack, # 28 tablet, Refills 2, Tot. Refills 2, Maintenance, Dyspepsia, 06/06/17 9:42:53 AM EST, Route to Pharmacy Electronically, [facility] Start Date: 06/06/17 Stop Date: 07/18/17 Status: Ordered Quantity: 28.0 Unit: tablet Repeat number: 3 Farxiga 10 mg oral tablet 1 tablet = 10 mg, By Mouth, Daily, # 30 tablet, 0 Refills, Maintenance, 02/15/24 9:42:00 PM EST, Tablet, Partial fill upon patient request if the prescription is for a schedule II opioid drug. Start Date: 02/15/24 Status: Ordered Quantity: 30.0 Unit: tablet Repeat number: 1 gabapentin 300 mg oral capsule 300 mg, 1, capsule, By Mouth, Daily at bedtime, Refills 0, Maintenance, 11/24/23 12:04:00 PM EDT, Partial fill upon patient request if the prescription is for a schedule II opioid drug. Start Date: 11/24/23 Status: Ordered Repeat number: 1 Lantus Solostar Pen 100 units/mL subcutaneous solution = 12 units, Subcutaneous Injection, Daily at bedtime, Maintenance, 11/24/23 12:05:00 PM EDT, Solution, Partial fill upon patient request if the prescription is for a schedule II opioid drug. Start Date: 11/24/23 Status: Ordered Repeat number: 1 Lumigan 0.01% ophthalmic solution 0 Refills, Maintenance, 11/24/23 12:15:00 PM EDT, Partial fill upon patient request if the prescription is for a schedule II opioid drug. Start Date: 11/24/23 Status: Ordered Repeat number: 1 medroxyPROGESTERone 10 mg oral tablet 28 each, 0 Refill(s), Refills 0, 02/23/23 1:14:00 PM EST, Partial fill upon patient request if the prescription is for a schedule II opioid drug. Start Date: 02/23/23 Status: Ordered Repeat number: 1 melatonin 5 mg oral tablet 1 tablet = 5 mg, By Mouth, Daily at bedtime, Maintenance, 11/24/23 12:15:00 PM EDT, Tablet, Partial fill upon patient request if the prescription is for a schedule II opioid drug. Start Date: 11/24/23 Status: Ordered Repeat number: 1 memantine 10 mg oral tablet 1 tablet = 10 mg, By Mouth, 2 times a day, Maintenance, 11/24/23 12:06:00 PM EDT, Tablet, Partial fill upon patient request if the prescription is for a schedule II opioid drug. Start Date: 11/24/23 Status: Ordered Repeat number: 1 MetFORMIN (Eqv-Glucophage XR) 500 mg oral tablet, extended release 2 tablet = 1,000 mg, By Mouth, 2 times a day, # 120 tablet, 0 Refills, Maintenance, 10/30/19 3:30:00PM EDT, ER Tablet, [facility], 152.4, cm, 02/09/19 11:33:00 EST, Height, 135, kg, 10/27/19 21:19:00 EDT, Dry Weight Start Date: 10/30/19 Status: Ordered Quantity: 120.0 Unit: tablet Repeat number: 1 Myrbetriq 50 mg oral tablet, extended release 1 tablet = 50 mg, By Mouth, Daily, do not crush or chew, # 30 tablet, 0 Refills, Maintenance, 12/30/19 12:55:00 PM EDT, ER Tablet Start Date: 12/30/19 Status: Ordered Quantity: 30.0 Unit: tablet Repeat number: 1 NovoLOG FlexPen 100 units/mL injectable solution as directed, Maintenance, 11/24/23 12:18:00 PM EDT, Partial fill upon patient request if the prescription is for a schedule II opioid drug. Start Date: 11/24/23 Status: Ordered Repeat number: 1 nystatin topical 211561 u/gm powder 1 application, Topically, 2 times a day, Maintenance, 11/24/23 12:19:00 PM EDT, Powder, Partial fillupon patient request if the prescription is for a schedule II opioid drug. Start Date: 11/24/23 Status: Ordered Repeat number: 1 Senna 8.6 mg oral tablet 17.2 mg, 2, tablet, By Mouth, Daily at bedtime, PRN, Refills 0, Maintenance, for constipation, 12/30/19 12:55:00 PM EDT, Tablet Start Date: 12/30/19 Status: Ordered Repeat number: 1 sertraline 100 mg oral tablet 1 tablet = 100 mg, By Mouth, Daily, 0 Refills, Maintenance, 12/30/19 12:55:00 PM EDT, Tablet Start Date: 12/30/19 Status: Ordered Repeat number: 1 simvastatin 20 mg oral tablet 20 mg, 1, tablet, By Mouth, Daily at bedtime, Refills 0, Maintenance, 12/30/19 12:55:00 PM EDT Start Date: 12/30/19 Status: Ordered Repeat number: 1 spironolactone 25 mg oral tablet 25 mg, 1, tablet, By Mouth, Daily, # 30 tablet, Refills 0, Tot. Refills 0, Maintenance, 02/17/24 3:08:00 PM EST, Route to Pharmacy Electronically, [facility], Partial fill upon patient request if the prescription is for a schedule II opioid drug., 155, cm, 02/17/24 12:36:00 EST, Height, 121.5, kg, 02/15/24 17:46:00 EST, Dry Weight Start Date: 02/17/24 Status: Ordered Quantity: 30.0 Unit: tablet Repeat number: 1 torsemide 20 mg oral tablet 1 tablet = 20 mg, By Mouth, Daily, # 30 tablet, 0 Refills, Maintenance, 02/15/24 9:42:00 PM EST, Tablet, Partial fill upon patient request if the prescription is for a schedule II opioid drug. Start Date: 02/15/24 Status: Ordered Quantity: 30.0 Unit: tablet Repeat number: 1 Trulicity Pen 1.5 mg/0.5 mL subcutaneous solution 0.5 mL = 1.5 mg, Subcutaneous Injection, Every week, 0 Refills, Maintenance, 06/03/21 5:59:00 PM EST,Solution, Partial fill upon patient request if the prescription is for a schedule II opioid drug. Start Date: 06/03/21 Status: Ordered Repeat number: 1 Tylenol Extra Strength = 1,000 mg, By Mouth, Every 6 hours, PRN Pain , Mild, not to exceed 4000 mg acetaminophen per day, 0 Refills, Maintenance, 10/28/19 4:36:00 PM EDT Start Date: 10/28/19 Status: Ordered Repeat number: 1 Vitamin B-12 1000 mcg oral tablet 2,000 mcg, 2, tablet, By Mouth, Daily in AM, Refills 0, 02/23/23 1:15:00 PM EST, Partial fill upon patient request if the prescription is for a schedule II opioid drug. Start Date: 02/23/23 Status: Ordered Repeat number: 1 Xarelto 20 mg oral tablet 1 tablet = 20 mg, By Mouth, Daily, Maintenance, 11/24/23 12:16:00 PM EDT, Tablet, Partial fill upon patient request if the prescription is for a schedule II opioid drug. Start Date: 11/24/23 Status: Ordered Repeat number: 1 Problem List Condition Confirmation Course Effective Dates Status H ealth Status Informant Age related osteoporosis 1 Confirmed 06/04/12 Active Arthritis of knee Confirmed Active Breast cancer Confirmed 08/15/10 Active Chronic hypoxic respiratory failure Confirmed Active COPD mixed type Confirmed Active Chronic pain syndrome Confirmed 02/10/08 Active Colonoscopy 2 Confirmed 07/03/06 Active DVT of deep femoral vein Confirmed Active Advanced dementia 3 Confirmed Active Depression Confirmed Active Diabetes mellitus type 2 Confirmed 08/27/07 Active Endometrial hyperplasia Confirmed Active GERD (gastroesophageal reflux disease) Confirmed Active Glaucoma Confirmed Active History of pulmonary embolism Confirmed Active HFrEF (heart failure with reduced ejection fraction) Confirmed Active History of DVT in adulthood Confirmed Active HYPERTENSION Confirmed Active Hysteroscopy, + D&C, stress/urge urinary incontinence, urethral hypermobility, atrophic endometrium Confirmed 10/06/07 Active Morbid obesity, BMI 52 Confirmed Active MAXIME - Obstructive sleep apnea, On CPAP, s/p sleep study in 02/05. Confirmed Active *[id number] re Partner-Enriqueta L'Heureux Confirmed 09/06/15 Active PMB (postmenopausal bleeding) Confirmed Active Reactive airway disease 4 Confirmed Active Severe obesity Confirmed Active SNHL - Sensorineural hearing loss Mod-Sev of Left Ear. 5 Confirmed Active Spinal stenosis, Chronic LBP, [facility] - [facility] 6 Confirmed Active 1ON biphosphonate therapy from 2009 to 2016. On Holiday period now... 2Repeat 10 yrs 3MOCA 01/28 4PFT: 10/12: There is a significant response to bronchodilator suggestive underlying airway hyperresponsiveness/asthma. Hyperinflation and air trapping are present. The carbon monoxide diffusing capacity is normal. Since 18-Sep-13, lower FEV1 (-14%), unchanged FVC (-8%) 5Referral to ENT on 11/06. 6F/U at [facility] for [facility]. Social History Social History Type Response Smoking Status Never smoker; Tobacc o user in household: Yes entered on: 04/17/13 Sex Female Sex Representation Female (finding) Patient Care team information Care Team Personnel Name: Keren Vaca RN Position: [facility] RN Member Role: Primary Care Nurse Name: Brando Morin RN Position: [facility] ED RN W/OE and Tasks Member Role: Primary Care Nurse Name: Bel Major NP Position: [facility] Associate Professional Member Role: Primary Care Nurse Address: [address] [place] [address] [place] [address]- [place] Telecom: Name: Tamara Ziegler RN Position: [facility] RN Member Role: Primary Care Nurse Name: Eric Soriano RN Position: [facility] RN Member Role: Primary Care Nurse Name: Clarisa Blanco RN Position: [facility] RN Supv Member Role: Primary Care Nurse Name: Azalea Sarkar RN Position: [facility] RN Member Role: Primary Care Nurse Name: Ramses Washington RN Position: [facility] RN Member Role: Primary Care Nurse Name: Himanshu Salas LPN Position: [facility] RN Member Role: Primary Care Nurse Name: Laureen Coughlin RN Position: [facility] Supervisor Accounts Receivable Member Role: Primary Care Nurse Name: Caridad Massey RN Position: [facility] Onco RN Member Role: Primary Care Nurse Name: Efren Mccallum RN Position: [facility] Outreach Member Role: Primary Care Nurse Name: Lou Diaz RN Position: [facility] ED RN W/OE and Tasks Member Role: Primary Care Nurse Name: Dejah Gaxiola RN Position: [facility] ED RN W/OE and Tasks Member Role: Primary Care Nurse Name: Stephanie Sánchez RN Position: [facility] RN Member Role: Primary Care Nurse Name: Isaias Remy RN Position: [facility] RN Member Role: Primary Care Nurse Name: Libby Nweman RN Position: [facility] RN Member Role: Primary Care Nurse Name: Dejah Barnett RN Position: [facility] RN Member Role: Primary Care Nurse Name: Ronaldo Hills III, RN Position: [facility] RN Member Role: Primary Care Nurse Name: Yamilet Koo RN Position: [facility] RN Member Role: Primary Care Nurse Name: Laura Saab LPN Position: [facility] RN Member Role: Primary Care Nurse Name: Ehsan Watt RN Position: [facility] RN Member Role: Primary Care Nurse Name: Bill Maya RN Position: [facility] RN Member Role: Primary Care Nurse Name: Nico Aponte RN Position: [facility] RN Member Role: Primary Care Nurse Name: Cara Torres RN Position: [facility] RN Member Role: Primary Care Nurse Name: Sarah Davila RN Position: [facility] RN Member Role: Primary Care Nurse Name: Regine Aguilar RN Position: [facility] AMB Nurse Member Role: Primary Care Nurse Name: Kera Chavarria RN Position: [facility] RN Member Role: Primary Care Nurse Name: Luci Vega RN Position: [facility] RN Member Role: Primary Care Nurse Name: Jenna Shirley RN Position: [facility] RN Member Role: Primary Care Nurse Name: Kimmy Vitale NP Position: [facility] Associate Professional Member Role: PCP Telecom: Name: Rm Kim RN Position: [facility] RN Member Role: Primary Care Nurse Name: Adwoa Pickett RN Position: [facility] SN RN Member Role: Primary Care Nurse Name: Susy Diaz RN Position: [facility] RN Member Role: Primary Care Nurse Name: Olga Durant LPN Position: [facility] RN Member Role: Primary Care Nurse Name: Ash Durant RN Position: [facility] AMB Nurse Member Role: Primary Care Nurse Name: Enriqueta Shi RN Position: [facility] RN Member Role: Primary Care Nurse Name: Emmy Gomez RN Position: [facility] Hospital Supervisor Accounts Receivable Member Role: Primary Care Nurse Name: Smitha Landers RN Position: [facility] RN Member Role: Primary Care Nurse Care Team Related Persons Name: ADWOA GAN Name: NATE MOTA Name: SELWYN HERRON Insurance Providers Guarantor name: ASH MOTA Health Plan Information #: 1 Payer: NA Member Number: [id number] Policy Number: NA Group Number: [facility] Health Plan Information #: 2 Payer: NA Member Number: [id number] Policy Number: NA Group Number:
== END 2024-05-27 11:18 | disposition home or self-care (01) ==
PROVIDERS: PCP Internal Medicine; Visit Provider Internal Medicine Pulmonary Disease
DX: E66.2 Morbid (severe) obesity with alveolar hypoventilation (principal); Z99.81 Dependence on supplemental oxygen; G47.33 Obstructive sleep apnea (adult) (pediatric)
CPT/HCPCS: 99214

== ENCOUNTER → 2024-05-27 10:50 | Outpatient (BNVA) | payer OTHER, SELFPAY | PROVIDERS: PCP Internal Medicine; Visit Provider Internal Medicine Pulmonary Disease | DX: G47.33 Obstructive sleep apnea (adult) (pediatric) (principal); E66.2 Morbid (severe) obesity with alveolar hypoventilation; Z99.81 Dependence on supplemental oxygen | CPT/HCPCS: 99212 ==